=== PATIENT | female | born 2000 | race Caucasian/White ===

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

== ENCOUNTER 2022-10-20 13:32 | Outpatient (REF) | payer OTHER, SELFPAY ==
[2022-10-22 23:39] LABS: TS Negative Control Passed; TS Panel A 0; TS Panel B 0; TS Positive Control Passed; TSpotTB Negative (Negative)
== END 2022-10-20 13:33 | disposition home or self-care (01) ==
LOC: HO.LAB 13:32
PROVIDERS: PCP Student in an Organized Health Care Education/Training Program; Visit Provider Student in an Organized Health Care Education/Training Program
DX: Z11.1 Encounter for screening for respiratory tuberculosis (principal)
CPT/HCPCS: 36415; 86481

== ENCOUNTER 2022-11-08 10:27 | Outpatient (REF) | payer OTHER, SELFPAY ==
[2022-11-08 12:26] LABS: HBsAGNum1 0.32 S/CO (0.00-0.99); Hepatitis B Surface Antigen Negative (Negative)
== END 2022-11-08 10:28 | disposition home or self-care (01) ==
LOC: HO.LAB 10:27
PROVIDERS: PCP Student in an Organized Health Care Education/Training Program; Visit Provider Student in an Organized Health Care Education/Training Program
DX: Z01.84 Encounter for antibody response examination (principal)
CPT/HCPCS: 36415; 87340

== ENCOUNTER → 2023-01-05 11:01 | Outpatient (BNVA) | payer SELFPAY | PROVIDERS: PCP Student in an Organized Health Care Education/Training Program | DX: Z04.9 Encounter for examination and observation for unspecified reason (principal) ==

== ENCOUNTER 2023-07-18 19:56 | Emergency (ER) | payer OTHER, SELFPAY ==
[2023-07-18 20:11] VITALS: BP 117/83; PULSE 77; RESP 18; TEMP 36.4; O2SAT 98; BMI 24.2
--- NOTE | 2023-07-18 20:20 | ED.HEATRA ---
HPI - Head Injury General Chief complaint: Head Injury Stated complaint: possible concussion Time Seen by Provider: 07/18/23 20:19 History of Present Illness HPI Narrative: Patient complains of head injury sustained yesterday afternoon when she tripped in parking lot and hit her head on a pole, she felt dizzy she got a headache, and she vomited once when she got home there was no loss of consciousness, she does remember running into the pole, no retrograde amnesia, no confusion no loss of balance no vision change, she does feel mildly nauseous but she is tolerating p.o. and has not vomited since the 1 time She has no neck pain, no facial pain, no extremity injuries Related Data Home Medications Medication Instructions Recorded Confirmed albuterol sulfate 90 mcg/actuation 2 puff PO Q4H PRN wheezing 07/27/21 07/27/21 aerosol inhaler norethindrone (contraceptive) 0.35 1 tab PO DAILY 07/27/21 07/27/21 mg tablet sertraline 100 mg tablet 1.5 tab PO DAILY 07/27/21 07/27/21 topiramate 50 mg tablet 1 tab PO BID 07/27/21 07/27/21 Allergies Allergy/AdvReac Type Severity Reaction Status Date / Time No Known Allergies Allergy Verified 07/18/23 20:11 [facility] Past Medical History Source: nursing notes reviewed Family History Family History (Updated 07/27/21 @ 11:11 by Karley Melendrez CMA) Mother Breast cancer Paternal Grandmother Diabetes Maternal Grandfather Diabetes Maternal Grandfather Stomach cancer Social History Social History (Updated 07/27/21 @ 11:12 by Karley Melendrez CMA) Household Members: Family Housing: House Are you a primary district manager primary care sales to a significant other at home: No Do you presently have visiting nurse or other home services: No Patient Tobacco Use Status: Never used Tobacco Advance Directives: No Advance Directives Information Provided: No service: No Current occupational status: student Physical Exam Vital Signs: Vital Signs: Last Vital Signs Temp 97.5 F 07/18/23 20:11 Pulse 77 07/18/23 20:11 Resp 18 07/18/23 20:11 BP 117/83 07/18/23 20:11 Pulse Ox 98 07/18/23 20:11 O2 Del Method Room Air 07/18/23 20:11 BMI result Body Mass Index 24.2 General appearance is no acute distress comfortable calm cooperative A&O x3 The head exam there is no hematoma or defect in the scalp or skull No raccoon eyes no vanessa sign Ear exam no hemotympanum Eye exam pupils equal round reactive to light extraocular motions are intact Facial exam there is no tenderness of the bones of the face no swelling Neck exam, full range of motion without discomfort, there is no posterior neck tenderness no midline tenderness Respiratory no distress Extremities full range motion x4 without tenderness swelling or deformity Neuro gait and balance are normal, cranial nerves 2-12 intact as tested, interaction comprehension and expression are normal, cerebellar exam [id number] normal, motor is 5/5 x4, sensation intact and symmetric Course Course Course Narrative: [place] head CT score is 0, patient is very well-appearing no neuro deficit gait and balance interaction are normal she is very comfortable appearing Her continuing mild headache and nausea without vomiting are likely concussion symptoms Discussion with patient she agreed at this point we would hold off on CT and she is discharged with diagnosis of likely concussion Discharge Plan Discharge Clinical Impression: Concussion Additional Instructions: I do not think you sustained any dangerous injury to her head, [place] head CT score was 0 and you are very well-appearing with a normal neurologic exam If symptoms worsen in any way you can come back any time return any time any worse condition or any concerns Follow with primary doctor if minor symptoms persist Prescriptions: No Action sertraline 100 mg tablet 1.5 tab PO DAILY albuterol sulfate 90 mcg/actuation HFA aerosol inhaler 2 puff PO Q4H PRN (Reason: wheezing) norethindrone (contraceptive) 0.35 mg tablet 1 tab PO DAILY topiramate 50 mg tablet 1 tab PO BID Stand Alone Forms: Work/School Release
== END 2023-07-18 20:46 | disposition home or self-care (01) ==
PROVIDERS: Emergency Provider Emergency Medicine; PCP Student in an Organized Health Care Education/Training Program
DX: S06.0X0A Concussion without loss of consciousness, initial encounter (principal); W01.198A Fall on same level from slipping, tripping and stumbling with subsequent striking against other object, initial encounter; Y93.01 Activity, walking, marching and hiking; Y92.481 Parking lot as the place of occurrence of the external cause; Y99.9 Unspecified external cause status
CPT/HCPCS: 99282

== ENCOUNTER 2023-11-21 09:45 | Outpatient (AMB) | payer OTHER, SELFPAY ==
[2023-11-21 09:58] VITALS: BP 102/68; PULSE 75; TEMP 37.1; O2SAT 98
--- NOTE | 2023-11-21 09:58 | AM.OFFWIN_ITS ---
Intake Vital Signs 11/21/23 09:58 Weight 163 lb 6 oz BP 102/68 Blood Pressure Location Lt brachial Position Sitting Pulse 75 Pulse Source Pulse Oximeter Temp 98.8 F Temp Source Oral Pulse Oximetry (%) 98 Oxygen Delivery Method Room Air Intake Visit Reasons: Sinus infection Intake Note: patient here c/o sinus and right ear infection. Patient Tobacco Use Status: Never used Tobacco Station Supervisor Required: No Accompanied by: Mother Is last menstrual period known: Yes Last menstrual period: 11/07/23 Patient : No Allergies No Known Allergies Allergy (Verified 11/21/23 10:04) Medication List - Last Reconciled 11/21/23 by Shirley Porter PA-C albuterol sulfate 90 mcg/actuation 2 puffs PO Q4H PRN norethindrone (contraceptive) 1 tab PO DAILY sertraline 1.5 tabs PO DAILY topiramate 1 tab PO BID Do you need a note to return to daycare/school/sports/work: No HPI Sinus infection HPI Details Patient is a 23-year-old female who presents today with complaints of sinus pain and pressure and right ear pain that started last week. She states that as the week has progressed that has worsened. She went to her primary care doctor yesterday and had a negative strep, COVID and flu test. She states that they did not look in her ear and it started to become painful 2 days ago but today it is excruciating. There is more pain on the right and then the left 1 intermittently hurts. She says that her right sinus is also very tender. She had fevers and chills when this started but nothing since the weekend. No nausea, vomiting or diarrhea. No urinary symptoms. Started Sunday. PFSH Family History (Updated 07/27/21 @ 11:11 by Karley Melendrez CMA) Mother Breast cancer Paternal Grandmother Diabetes Maternal Grandfather Diabetes Maternal Grandfather Stomach cancer Social History (Updated 07/27/21 @ 11:12 by Karley Melendrez CMA) Household Members: Family Housing: House Are you a primary health careers instructor to a significant other at home: No Do you presently have visiting nurse or other home services: No Patient Tobacco Use Status: Never used Tobacco service: No Current occupational status: student Female Reproductive History Menstrual Date of last menstrual period: 11/07/23 Physical Exam Vital Signs: Last Vital Signs Temp 98.8 F 11/21/23 09:58 Pulse 75 11/21/23 09:58 BP 102/68 11/21/23 09:58 Pulse Ox 98 11/21/23 09:58 Oxygen Delivery Method Room Air 11/21/23 09:58 Const Orientation/consciousness: patient oriented x3 HEENT Other: Nasal mucosa erythematous and edematous. Purulent drainage noted. Right maxillary sinus tenderness present. The TM on the right is erythematous and bulging. TM on left is noted to have a small air-fluid level and slightly dull. Ears: hearing grossly normal bilaterally Neck Thyroid: Thyroid normal Lymphatic: lymphadenopathy (Anterior cervical lymphadenopathy noted) Resp Auscultation: clear to auscultation bilaterally Cardio Rate: regular rate Rhythm: regular rhythm Heart sounds: S1 normal heart sound present and S2 normal heart sound present GI Inspection: Yes normal to inspection Palpation (GI): Soft to palpation and Other GI palpation findings present (nontender, no cva tenderness) Auscultation: normoactive bowel sounds Skin General skin exam: no rashes or lesions noted Neuro General: patient oriented x3, gait normal and no focal motor deficits Assessment & Plan Assessment & Plan (1) Right otitis media: Code(s): H66.91 - Otitis media, unspecified, right ear Plan: We will start patient on Augmentin and Flonase. Discussed risks and benefits and adverse effects of this medications such as GI upset. Advised to take a probiotic while she takes an antibiotic. I have also encouraged her to try Sudafed. Follow up if no improvement or if anything worsens or changes. Patient understands and agrees with the plan. Medications: New amoxicillin-pot clavulanate 875-125 mg 1 tab PO Q12H 20 tabs 0RF fluticasone propionate 50 mcg/actuation (Flonase Allergy Relief) administer into each nostril 2 sprays intranasal DAILY 16 grams 0RF Coding Level of Care Code Est Pt Level 3 (87834) Diagnoses Right otitis media H66.91
== END 2023-11-21 10:28 | disposition home or self-care (01) ==
PROVIDERS: PCP Student in an Organized Health Care Education/Training Program; Visit Provider Physician Assistant
DX: H66.91 Otitis media, unspecified, right ear (principal)
CPT/HCPCS: 99213

== ENCOUNTER 2023-11-22 10:38 | Outpatient (AMB) | payer OTHER, SELFPAY ==
[2023-11-22 10:50] VITALS: BP 112/70; PULSE 111; TEMP 36.6; O2SAT 97; BMI 25.8
--- NOTE | 2023-11-22 10:50 | MHC.OFFWIV ---
Intake Vital Signs 11/22/23 10:50 Height 5 ft 6 in Weight 160 lb BMI 25.8 BP 112/70 Blood Pressure Location Lt brachial Position Sitting Pulse 111 H Pulse Source Pulse Oximeter Temp 97.9 F Temp Source Temporal Artery Scan Pulse Oximetry (%) 97 Oxygen Delivery Method Room Air Intake Visit Reasons: EP severe RT ear pain Intake Note: pt is here today for severe rt ear pain started yesterday Patient Tobacco Use Status: Never used Tobacco Allergies No Known Allergies Allergy (Verified 11/22/23 10:53) Do you need a note to return to daycare/school/sports/work: Yes HPI HPI Comments History of Present Illness Details Patient is a 23-year-old female who was complaining of right ear pain. She said she was diagnosed 2 days ago with an ear infection on the right side but feels like the pain is getting worse and her hearing is still reduced. She has taken 4 doses of the amoxicillin. She is concerned because she has to fly to [place] in 2 days and is worried about her eardrum rupturing and more pain. She is also taking a decongestant. She does not take a daily allergy pill. She denies any fever [facility] Family History (Updated 07/27/21 @ 11:11 by Karley Melendrez CMA) Mother Breast cancer Paternal Grandmother Diabetes Maternal Grandfather Diabetes Maternal Grandfather Stomach cancer Social History (Updated 07/27/21 @ 11:12 by Karley Melendrez CMA) Household Members: Family Housing: House Are you a primary managed care nurse to a significant other at home: No Do you presently have visiting nurse or other home services: No Patient Tobacco Use Status: Never used Tobacco service: No Current occupational status: student Review of Systems Const All systems reviewed & are unremarkable except as noted in HPI and below Physical Exam Vital Signs: Last Vital Signs Temp 97.9 F 11/22/23 10:50 Pulse 111 H 11/22/23 10:50 BP 112/70 11/22/23 10:50 Pulse Ox 97 11/22/23 10:50 Oxygen Delivery Method Room Air 11/22/23 10:50 BMI result Body Mass Index 25.8 Const General: cooperative, healthy appearing, comfortable and no acute distress Orientation/consciousness: patient oriented x3 Limitations: no limitations HEENT Head: Yes normal to inspection Ears: external ears normal, TM normal on the left and TM abnormal dull, erythematous and with loss of landmarks General nose exam: Normal external nose present, Normal nares present and No nasal discharge present Face and sinus: Yes normal facial exam Mouth: Normal oral and palatal mucosa present and moist mucous membranes Eyes General: appearance normal, both eyes and all related structures Neck Neck: Yes normal visual inspection Resp Effort & Inspection: normal respiratory effort, able to speak in complete sentences, Actively coughing, no respiratory distress, not tachypneic, no tripod positioning and no use of accessory muscles Skin General skin exam: no rashes or lesions noted Neuro General: patient oriented x3 Extrem General: Yes normal to inspection and Yes no clubbing, cyanosis or edema Assessment & Plan Assessment & Plan (1) Right otitis media: Code(s): H66.91 - Otitis media, unspecified, right ear Qualifiers: Otitis media type: suppurative Chronicity: acute Recurrence: non-recurrent Spontaneous tympanic membrane rupture: without spontaneous rupture Qualified Code(s): H66.001 - Acute suppurative otitis media without spontaneous rupture of ear drum, right ear Plan: Agree to upgrade azithromycin to Augmentin and gave instructions on how to finish out the course with Augmentin, recommended adding daily allergy pill to help with the drying up. Plan Next see above Medications: New amoxicillin-pot clavulanate 875-125 mg 1 tab PO Q12H 10 tabs 0RF Coding Level of Care Code Est Pt Level 3 (47047) Diagnoses Non-recurrent acute suppurative otitis media of right ear without spontaneous rupture of tympanic membrane H66.001 Otitis media type: suppurative Chronicity: acute Recurrence: non-recurrent Spontaneous tympanic membrane rupture: without spontaneous rupture
== END 2023-11-22 12:02 | disposition home or self-care (01) ==
PROVIDERS: PCP Student in an Organized Health Care Education/Training Program; Visit Provider Physician Assistant
DX: H66.001 Acute suppurative otitis media without spontaneous rupture of ear drum, right ear (principal)
CPT/HCPCS: 99213

== ENCOUNTER 2024-02-12 15:26 | Outpatient (REF) | payer OTHER, SELFPAY ==
[2024-02-15 09:12] LABS: TS Negative Control Passed; TS Panel A 1; TS Panel B 0; TS Positive Control Passed; TSpotTB Negative (Negative)
== END 2024-02-12 15:27 | disposition home or self-care (01) ==
LOC: HO.LAB 15:26
PROVIDERS: PCP Student in an Organized Health Care Education/Training Program; Visit Provider Student in an Organized Health Care Education/Training Program
DX: Z11.1 Encounter for screening for respiratory tuberculosis (principal)
CPT/HCPCS: 36415; 86481

== ENCOUNTER 2024-02-25 17:39 | Emergency (ER) | payer OTHER, SELFPAY ==
--- NOTE | ~2024-02-25 | XR_ITS ---
EXAMINATION: XR CHEST CLINICAL INFORMATION: Dyspnea. COMPARISON: None available. TECHNIQUE: Frontal view of the chest was obtained. 1836 hours FINDINGS: No significant abnormality is noted involving the heart, lungs, mediastinum, bony thorax or soft tissues. XR/XR chest 1V IMPRESSION: Unremarkable examination. Electronically signed by: James Delarosa MD 02/25/2024 07:33 PM EDT RP
--- NOTE | ~2024-02-25 | CT_ITS ---
EXAMINATION: CT HEAD WITHOUT IV CONTRAST CLINICAL INFORMATION: headache, severe COMPARISON: CT head without contrast 03/27/2021 TECHNIQUE: Contiguous axial imaging was performed from the skull base to vertex without intravenous contrast. Sagittal and coronal reformatted images were obtained. This CT examination was performed using dose optimization techniques as appropriate, variously including the following: * Automated exposure control * Adjustment of mA and/or kV according to patient size (this includes techniques or standardized protocols for targeted exams where dose is matched to indication/reason for exam; i.e. extremities or head) Use of iterative reconstruction technique DLP: 580 mGy-cm FINDINGS: No acute osseous or soft tissue abnormality. The mastoid air cells and visualized portions of the paranasal sinuses are well aerated. There is no evidence of acute intracranial hemorrhage or territorial infarction. No abnormal mass effect or midline shift is seen. Smiley to white matter differentiation is well preserved. No extra-axial fluid collections are identified. No hydrocephalus. No significant volume loss. There is no abnormal attenuation within the brain parenchyma. Stable prominence of the pituitary with superior convex margin, within normal physiologic limits for age. Stable [address]/CT head/brain wo IV con IMPRESSION: No acute intracranial abnormality including hemorrhage, mass effect, hydrocephalus, or acute territorial edematous infarction. Electronically signed by: Jaime Morrow MD 02/25/2024 08:51 PM EDT
[2024-02-25 17:52] VITALS: BP 134/93; BP 138/78; PULSE 80; PULSE 89; RESP 16; TEMP 36.8; O2SAT 100; O2SAT 99; BMI 28.5
--- NOTE | 2024-02-25 17:54 | ECG_ITS ---
Test Reason : WEAKNESS Blood Pressure : / mmHG Vent. Rate : 079 BPM Atrial Rate : 079 BPM P-R Int : 132 ms QRS Dur : 088 ms QT Int : 400 ms P-R-T Axes : 031 082 040 degrees QTc Int : 458 ms Normal sinus rhythm Normal ECG When compared with ECG of 27-MAR-2021 11:50, Heart rate has increased Referred By: Rita Mobley Electronically Signed By:SIRIA ANDREWS
--- NOTE | 2024-02-25 17:56 | ED.AMS ---
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 Family was home and the patient was shaking her jaw was chattering but no LOC reported. She did go stiff but no LOC reported. She is under a lot of stress which can be a triggering event for her. This event has lasted about 30 minutes which is longer for her. On arrival they are all very anxious and then the patient woke up and started to gasp and the family started to yell she couldn't breathe - her lungs were clear with sats of 99% and then the patient started to sob. Patient went to the mall with her sister prior the event. Parents were home and deny any head trauma MD complaint: other (weakness, chattering teeth, no return to her baseline. ) Onset (ago): minute(s) (30) Timing confirmed by: family member Severity: severe Consistency of symptoms: waxing and waning Context: history of similar presentation (milder) and seizure disorder Associated symptoms: other (jaw chattering, weakness) Related Data Home Medications ?Medication ?Instructions ?Recorded ?Confirmed albuterol sulfate 90 mcg/actuation 2 puff PO Q4H PRN wheezing 07/27/21 11/21/23 aerosol inhaler norethindrone (contraceptive) 0.35 1 tab PO DAILY 07/27/21 11/21/23 mg tablet sertraline 100 mg tablet 1.5 tab PO DAILY 07/27/21 11/21/23 topiramate 50 mg tablet 1 tab PO BID 07/27/21 11/21/23 Previous Rx's ?Medication ?Instructions ?Recorded amoxicillin 875 mg-potassium 1 tab PO Q12H #20 tabs 11/21/23 clavulanate 125 mg tablet fluticasone propionate 50 2 spray intranasal DAILY #16 grams 11/21/23 mcg/actuation nasal spray,suspension (Flonase Allergy Relief) amoxicillin 875 mg-potassium 1 tab PO Q12H #10 tabs 11/22/23 clavulanate 125 mg tablet Allergies Allergy/AdvReac Type Severity Reaction Status Date / Time No Known Allergies Allergy Verified 02/25/24 17:54 Review of Systems Review of Systems: ROS unable to be obtained due to patient not speaking or interacting [facility] Past Medical History Attestation statement: The following information was validated with the patient. Source: old records reviewed Medical History (Updated 02/25/24 @ 21:15 by Rita Mobley DO) Seizure Anxiety Family History Family History (Updated 07/27/21 @ 11:11 by Karley Melendrez CMA) Mother Breast cancer Paternal Grandmother Diabetes Maternal Grandfather Diabetes Maternal Grandfather Stomach cancer Social History Social History Household Members: Family Housing: House Are you a primary career law clerk to a significant other at home: No Do you presently have visiting nurse or other home services: No Patient Tobacco Use Status: Never used Tobacco Smoked in Last 30 Days: No Use of substances other than those prescribed or required for medical reasons: No Advance Directives: No Advance Directives Information Provided: No Do you have a plan to hurt others: No Plan Patient : No service: No Current occupational status: student Physical Exam ED Vital Signs: Vital Signs - 24 hr 02/25/24 17:52 02/25/24 18:11 Temperature 98.3 F 98.5 F Pulse Rate 80 72 Respiratory Rate 16 20 Blood Pressure 134/93 H 139/93 H Pulse Oximetry 100 100 Oxygen Delivery Method Room Air Room Air BMI result Body Mass Index 28.5 Appearance: tears down face, eyes flutter but she has normal corneal reflexes and blinks her eyes to snapping fingers, sobbing at times. Moderate acute distress. Eyes: Pupils equal, round and reactive to light. ENT: Pharynx teeth are chattering, jaw is not rigid Neck: Normal inspection. Neck supple. CVS: tachycardic heart rate and rhythm. Pulses normal. Respiratory: No respiratory distress. Breath sounds normal. Abdomen: Soft and nontender. Skin: Skin warm and dry. Normal skin color. Normal skin turgor. Extremities: No lower extremity edema. No calf ttp Neuro: not able to participate but on exam no clonus no hyperreflexia, babinski normal, responds to painful stimuli, no seizure activity on arrival Medications Administered Discontinued Medications Generic Name Dose Route Start Last Admin Trade Name Jaja PRN Reason Stop Dose Admin Acetaminophen 650 mg 02/25/24 19:22 02/25/24 20:57 Acetaminophen 325 Mg Tablet PO 02/25/24 19:23 650 mg ONCE ONE Administration Lactated Ringer's 1,000 mls @ 999 mls/hr 02/25/24 17:54 02/25/24 20:52 Lr IV 02/25/24 18:54 Infused .Q1H1M ONE Infusion Lorazepam 1 mg 02/25/24 17:54 02/25/24 18:04 Lorazepam 2 Mg/Ml Vial IVPUSH 02/25/24 17:55 1 mg STAT STA Administration Medical Decision Making Medical Decision Making [facility] Narrative: 23 yo female with PMH of seizures on trileptal, anxiety on sertraline who has had EEG in the past and holter here with teeth chattering, crying, anxiety and then states she cannot breathe has hx of these episodes but this is lasting longer than usual. At this time will obtain labs, EKG, CXR, IV ativan and fluids. On arrival no seizure activity noted. No head trauma reported per family. No recent infections had normal day and went to mall with sister per parents. Differential Diagnosis Differential Diagnoses: The differential diagnosis associated with the presentation includes anxiety, lyte abnormality, movement disorder Admission/Observation Consideration of admission/observation: Escalation of care including admission/observation considered labs reassuring CT head and Chest xray negative EKG troponin and ddimer negative back to baseline up and walking to and from the bathroom Lab Data [facility] Lab Attestation statement: I reviewed the patient's lab results. 02/25/24 18:10 02/25/24 18:10 Labs: Lab Results 02/25/24 02/25/24 Range/Units 18:10 18:52 WBC 10.1 (4.8-10.8) X10*3/uL RBC 4.40 (4.20-5.50) X10*6/uL Hgb 13.4 (12.0-16.0) g/dl Hct 38.3 (37.0-47.0) % MCV 87.0 (80.0-98.0) fL MCH 30.5 (27.0-33.0) pg MCHC 35.0 (31.0-35.0) g/dl RDW 12.0 (11.0-16.0) % Plt Count 275 (160-400) X10*3/uL MPV 10.3 (9.4-12.3) fL Immature Gran % (Auto) 0.3 (0.0-0.4) % Neut % (Auto) 60.0 (45-73) % Lymph % (Auto) 29.1 (20-40) % Sutton % (Auto) 5.6 (2-11) % Eos % (Auto) 4.4 H (0-4) % Baso % (Auto) 0.6 (0-2) % Lymph # (Auto) 2.9 (1.2-4.9) X10*3/uL Sutton # (Auto) 0.6 (0.1-1.2) X10*3/uL Eos # (Auto) 0.4 (0.0-0.4) X10*3/uL Baso # (Auto) 0.1 (0.0-0.2) X10*3/uL Abs Immat Gran (auto) 0.03 (0.00-0.03) X10*3/uL Absolute Neuts (auto) 6.1 (2.0-8.3) x10*3/uL Absolute Nucleated RBC 0.000 (0.0-0.012) X10*3/uL Nucleated RBC % (auto) 0.0 (0.0-0.2) /100WBC D-Dimer High Sensitivty < 150 NG/ML Sodium 139 (135-145) mmol/L Potassium 3.5 (3.3-5.1) mmol/L Chloride 105 (96-108) mmol/L Carbon Dioxide 22 (22-29) mmol/L Anion Gap 16 (12-20) BUN 12 (9-16) mg/dL Creatinine 0.85 (0.5-1.4) mg/dL Estim Creat Clear Calc 111.7 Estimated GFR > 60 Random Glucose 96 (60-115) mg/dL Calcium 9.9 (8.4-10.2) mg/dL Magnesium 1.8 (1.6-2.6) mg/dL Total Bilirubin 0.4 (0.0-1.0) mg/dL Direct Bilirubin 0.2 (0.0-0.5) mg/dL AST 12 (5-31) U/L ALT 10 (0-31) U/L Alkaline Phosphatase 87 (39-117) U/L Troponin I High Sens < 2.7 (<3.5-17.0) ng/L B-Natriuretic Peptide < 10 (<100) pg/mL Total Protein 7.3 (6.5-8.0) g/dL Albumin 4.6 (3.5-5.0) g/dL Lipase 20 (8-78) U/L TSH 1.04 (0.32-4.0) uIU/mL Beta HCG, Quant < 2 mIU/mL Independent Interpretation I performed an independent interpretation of an: EKG, Plain X-Ray (normal ) and CT Scan (normal ) Interpretation: Rate: 79 Rhythm: NSR Yarnell: normal Normal P waves. Normal MARC. Normal QRS complex. ST T wave : normal no SATHISH qTC: 458 prior studies: no acute ischemia The study has been interpreted contemporaneously by me. . Radiology Impression Discussion of test interpretation with radiology: I have reviewed the radiologist's reading. Independent Historian Clinical information obtained from an independent historian. History obtained from or confirmed by: Parent and EMS External Record Review External record reviewed: Office record Discharge Plan Discharge Clinical Impression: Atypical chest pain, Abnormal involuntary movements, Migraine Patient Disposition: Home, Self-Care Instructions: Chest Pain (ED), Migraine Headache (ED) Additional Instructions: work up today included normal labs, electrolytes, thyroid test, tests of the heart - troponin, BNP negative for blood clot EKG was normal, chest xray was normal CT head was normal rest, stay hydrated, stay with responsible adult for the next 24 hours return for any worsening symptoms or concerns. follow up with your doctor Prescriptions: No Action sertraline 100 mg tablet 1.5 tab PO DAILY albuterol sulfate 90 mcg/actuation HFA aerosol inhaler 2 puff PO Q4H PRN (Reason: wheezing) norethindrone (contraceptive) 0.35 mg tablet 1 tab PO DAILY topiramate 50 mg tablet 1 tab PO BID amoxicillin-pot clavulanate 875-125 mg tablet 1 tab PO Q12H Qty: 10 0RF amoxicillin-pot clavulanate 875-125 mg tablet 1 tab PO Q12H Qty: 20 0RF fluticasone propionate [Flonase Allergy Relief] 50 mcg/actuation spray,suspension 2 spray intranasal DAILY Qty: 16 0RF Rx Instructions: administer into each nostril Stand Alone Forms: Work/School Release Print Language: Mohawk
--- NOTE | 2024-02-25 18:00 | PC.NURSE ---
Seizure padding applied to pt.'s bedside.
--- NOTE | 2024-02-25 18:03 | PC.NURSE ---
Pt. on continuous SPO2 monitor at bedside. Pt. jolted forward and was unable to breathe. Visibly gasping but no air moving in or out. This RN and Vipul Mobley, DO to bedside. Pt. suddenly gasped and was able to breathe again.
--- NOTE | 2024-02-25 18:03 | PC.NURSE ---
Pt.'s respirations are intact. All VSS
[2024-02-25] MEDS: LORazepam 2 MG/ML VIAL 1 MG IVPUSH (18:04)
[2024-02-25] MEDS: Lactated Ringers 1,000 ML 999 ML IV (18:04)
--- NOTE | 2024-02-25 18:04 | PC.NURSE ---
Pt. medicated per AUG.
[2024-02-25 18:11] VITALS: BP 139/93; PULSE 72; RESP 20; TEMP 36.9; O2SAT 100
[2024-02-25 18:14] LABS: MANUAL DIFF FLAG NO
[2024-02-25 18:31] LABS: Basophils Absolute Auto 0.1 X10*3/uL (0.0-0.2); Basophils Percent Auto 0.6 % (0-2); Eosinophils Absolute Auto 0.4 X10*3/uL (0.0-0.4); Eosinophils Percent Auto 4.4 % (0-4); Hematocrit 38.3 % (37.0-47.0); Hemoglobin 13.4 g/dl (12.0-16.0); Imm Gran Abs Auto 0.03 X10*3/uL (0.00-0.03); Imm Gran Pct Auto 0.3 % (0.0-0.4); Lymphocytes Absolute Auto 2.9 X10*3/uL (1.2-4.9); Lymphocytes Percent Auto 29.1 % (20-40); Mean Corpuscular Hemoglobin 30.5 pg (27.0-33.0); Mean Platelet Volume 10.3 fL (9.4-12.3); Monocytes Absolute Auto 0.6 X10*3/uL (0.1-1.2); Monocytes Percent Auto 5.6 % (2-11); Neutrophils Absolute Auto 6.1 x10*3/uL (2.0-8.3); Platelet Count 275 X10*3/uL (160-400); White Blood Count 10.1 X10*3/uL (4.8-10.8)
[2024-02-25 18:40] LABS: Alanine Aminotransferase 10 U/L (0-31); Albumin Level 4.6 g/dL (3.5-5.0); Alkaline Phosphatase 87 U/L (39-117); Anion Gap 16 (12-20); Aspartate Amino Transferase 12 U/L (5-31); Bilirubin Direct 0.2 mg/dL (0.0-0.5); Bilirubin Total 0.4 mg/dL (0.0-1.0); Blood Urea Nitrogen 12 mg/dL (9-16); Calcium 9.9 mg/dL (8.4-10.2); Carbon Dioxide 22 mmol/L (22-29); Chloride 105 mmol/L (96-108); Creatinine Clr Calc Pharmacy 111.7; Estimated Glomerular Filt Rate > 60; Glucose Random 96 mg/dL (60-115); Lipase 20 U/L (8-78); Magnesium 1.8 mg/dL (1.6-2.6); Potassium 3.5 mmol/L (3.3-5.1); Sodium 139 mmol/L (135-145); Total Protein 7.3 g/dL (6.5-8.0)
[2024-02-25 18:58] LABS: HCG Quantitative < 2 mIU/mL; TSH reflex Free T4 1.04 uIU/mL (0.32-4.0)
[2024-02-25 19:15] LABS: B Type Natriuretic Peptide < 10 pg/mL (<100)
[2024-02-25 19:17] LABS: Troponin-I High Sensitivity < 2.7 ng/L (<3.5-17.0)
[2024-02-25 19:26] LABS: D Dimer High Sensitivity < 150 NG/ML
[2024-02-25] MEDS: Acetaminophen 325 MG TABLET 650 MG PO (20:57)
[2024-02-25] MEDS: Ketorolac Tromethamine 15 MG/ML VIAL IVPUSH (21:26)
[2024-02-25 21:59] VITALS: BP 121/64; PULSE 72; RESP 16; TEMP 37.2; O2SAT 100
[2024-02-25 22:02] VITALS: BP 121/64; PULSE 72; RESP 16; TEMP 37.2; O2SAT 100
== END 2024-02-25 22:04 | disposition home or self-care (01) ==
PROVIDERS: Emergency Provider Emergency Medicine; PCP Student in an Organized Health Care Education/Training Program
DX: R07.89 Other chest pain (principal); R56.9 Unspecified convulsions; G43.909 Migraine, unspecified, not intractable, without status migrainosus; R53.1 Weakness; R06.00 Dyspnea, unspecified; Z79.899 Other long term (current) drug therapy
CPT/HCPCS: 36415; 70450; 71045; 80048; 80076; 83690; 83735; 83880; 84443; 84484; 84702; 85025; 85379; 93005; 96361; 96374; 96375; 99284; 99285; J1885; J2060; J7120

== ENCOUNTER 2024-06-14 15:09 | Outpatient (REF) | payer OTHER, SELFPAY ==
--- NOTE | ~2024-06-14 | MR_ITS ---
EXAMINATION: MR BRAIN WITHOUT AND WITH CONTRAST CLINICAL INFORMATION: Seizures. COMPARISON: CT brain 02/25/2024 TECHNIQUE: Multiplanar, multisequence MRI of the brain was obtained before and after the intravenous administration of 7.5 mL of gadolinium was. FINDINGS: There is no restricted diffusion seen to suspect acute ischemic changes. No magnetic susceptibility artifact seen either to suspect acute or chronic hemorrhagic products or calcification. No T2 FLAIR foci seen within the brain. The mathews to white matter differentiation is maintained normal. The lateral ventricles are symmetrical in size and configuration without enlargement. There is normal symmetry of temporal lobes with no abnormal signal. The temporal horns are symmetrical as well. The posterior fossa appears unremarkable. Postcontrast no abnormal intraparenchymal or extra-axial enhancement seen. Normal flow-void signal is seen in major cerebral vasculature. Incidental finding of mucoperiosteal thickening left maxillary sinus. There is a small polyp or retention cyst left anterior maxillary sinus. The bone marrow is signal appears normal. MR/MR head/brain wo/w con IMPRESSION: Unremarkable MRI brain without and with contrast. Especially no abnormal intraparenchymal, lower extra-axial enhancement seen. Chronic inflammatory changes left maxillary sinus and small polyp or retention cyst right maxillary sinus. Electronically signed by: Marty Vang MD 06/16/2024 09:30 AM EST
[2024-06-14] MEDS: gadobutroL 7.5 ML VIAL IVPUSH (16:12)
== END 2024-06-14 15:10 | disposition home or self-care (01) ==
LOC: HO.MRI 15:09
PROVIDERS: PCP Student in an Organized Health Care Education/Training Program; Visit Provider Nurse Practitioner Primary Care
DX: E34.8 Other specified endocrine disorders (principal); R56.9 Unspecified convulsions
CPT/HCPCS: 70553; A9585

== ENCOUNTER → 2024-06-14 15:25 | Outpatient (BNV) | payer OTHER, SELFPAY | PROVIDERS: PCP Student in an Organized Health Care Education/Training Program; Visit Provider Radiology Diagnostic Radiology | DX: J34.1 Cyst and mucocele of nose and nasal sinus (principal) | CPT/HCPCS: 70553 ==

== ENCOUNTER 2025-02-27 09:25 | Outpatient (AMB) | payer OTHER, SELFPAY ==
--- NOTE | 2025-02-27 09:33 | MHC.OFFVIS ---
Intake Visit Reasons: 6 Months follow up Accompanied by: Mother Allergies No Known Allergies Allergy (Verified 02/27/25 09:38) Medication List - Last Reconciled 02/27/25 by Lori Mccauley CNP albuterol sulfate 90 mcg/actuation 2 puffs PO Q4H PRN fluticasone propionate 50 mcg/actuation (Flonase Allergy Relief) 2 sprays intranasal DAILY norethindrone (contraceptive) 1 tab PO DAILY oxcarbazepine 300 mg PO BID oxcarbazepine 150 mg PO BID spironolactone 50 mg PO BID sumatriptan succinate take 1 tab at onset of headache; if no relief may repeat 1 tab after at least 2 hrs; max = 4 tabs/24 hr PO HPI Comments Details: 24-year-old woman with migraine and seizure disorder (sharp headache, dizziness, weakness, numbness of arms and body, leading to sitting down and passing out. She was told that her eyes rolled up, fluttered, teeth chattered, jaw clenched, body shivered, for 3 to 10 minutes. No incontinence or tongue bite).? She was doing okay, although she was still having few spells. She was taking oxcarbazepine 450mg twice a day. No medication side effects or missed doses. Spells would generally happen in clusters, occurring for few days in a row, and then she could go a few weeks without any. No specific triggers identified, aside from possibly stress. She had few migraines which sumatriptan usually helped, but she was asking if dose could be increased. Sleep was okay. She has been living in [place] for few months with her boyfriend and was back for few days for wedding. [facility] Medical History (Updated 02/27/25 @ 09:37 by Lori Mccauley CNP) Seizure Anxiety Family History (Updated 07/27/21 @ 11:11 by Karley Melendrez CMA) Mother Breast cancer Paternal Grandmother Diabetes Maternal Grandfather Diabetes Maternal Grandfather Stomach cancer Social History Household Members: Family Housing: House Are you a primary primary care coordinator to a significant other at home: No Do you presently have visiting nurse or other home services: No Patient Tobacco Use Status: Never used Tobacco service: No Current occupational status: student Review of Systems Const Denies chills, Denies daytime sleepiness, Denies difficulty sleeping, Denies fatigue, Denies fever(s), Denies frequent falls, Reports headache(s), Denies increased appetite, Denies poor appetite, Denies snoring, Denies weakness, Denies weight gain and Denies weight loss Eyes Denies loss of vision ENT Denies vertigo, Denies dizziness and Reports headache(s) Card Denies chest pain at rest, Denies chest pain with activity, Denies syncope, Denies leg edema and Denies palpitations Resp Denies snoring GI Denies constipation, Denies heartburn, Denies diarrhea and Denies nausea Denies urinary frequency, Denies urinary incontinence and Denies urinary urgency Musc Denies abnormal gait, Denies numbness and Denies tingling Skin/Breast Denies dry skin and Denies rash Neuro Denies abnormal gait, Denies vertigo, Denies dizziness, Denies syncope, Denies frequent falls, Reports headache(s), Denies lack of coordination, Denies loss of vision, Denies memory loss, Denies numbness, Denies restless legs, Reports seizure-like activity, Denies tingling, Denies paresthesias, Denies tremor(s) and Denies weakness Psych Denies anxiety, Denies depression, Denies auditory hallucinations, Denies memory loss, Denies visual hallucinations and Denies suicidal ideation Endo Denies fatigue and Denies palpitations Physical Exam Const Other: General Appearance:? normal, in no acute distress. Skin:? no rashes, no significant birthmarks. Heart:? S1, S2 normal, no murmurs. Lungs:? clear anteriorly and posteriorly. Extremities:? no edema. Psych:? alert, oriented, cognitive function intact, cooperative with exam. Neuro Other: Mental Status:?Normal attention, orientation, memory and affect.? Cranial Nerves:?Pupils are equal, round and reactive to light. External occular muscles are intact. Visual reyes are full. Face is symmetrical. Facial sensations are normal. Tongue is midline. Palate elevates symmetrically. Shoulder shrugging is normal. Hearing to bedside conversation is normal. Sensory Exam:?....? Coordination:?No ataxia,?no titubation.? Gait Exam: Within normal limits. Cerebellar Signs:?[id number]-[id number] is okay. Extrapyramidal System:?No tremor, rigidity with normal facial expressions.? Pronator Drift:?Not present.? Involuntary Movements:?No tremors seen.? Speech:?Normal.? Results Reviewed Results Reviewed: [address] [address] Magnetic Resonance Report Signed Patient: Alisha Ratliff MR#: [id number] : 2000 Acct:[id number] Age/Sex: 23 / F ADM Date: 06/14/24 Loc: HO.MRI Attending Dr: Jennifer Valdes NP Ordering Physician: Jennifer Valdes NP Date of Service: 06/14/24 Procedure(s): MR head/brain wo/w con Accession Number(s): [id number] cc: Jennifer Valdes NP; Jyoti James MD~ EXAMINATION: MR BRAIN WITHOUT AND WITH CONTRAST CLINICAL INFORMATION: Seizures. COMPARISON: CT brain 02/25/2024 TECHNIQUE: Multiplanar, multisequence MRI of the brain was obtained before and after the intravenous administration of 7.5 mL of gadolinium was. FINDINGS: There is no restricted diffusion seen to suspect acute ischemic changes. No magnetic susceptibility artifact seen either to suspect acute or chronic hemorrhagic products or calcification. No T2 FLAIR foci seen within the brain. The mathews to white matter differentiation is maintained normal. The lateral ventricles are symmetrical in size and configuration without enlargement. There is normal symmetry of temporal lobes with no abnormal signal. The temporal horns are symmetrical as well. The posterior fossa appears unremarkable. Postcontrast no abnormal intraparenchymal or extra-axial enhancement seen. Normal flow-void signal is seen in major cerebral vasculature. Incidental finding of mucoperiosteal thickening left maxillary sinus. There is a small polyp or retention cyst left anterior maxillary sinus. The bone marrow is signal appears normal. MR/MR head/brain wo/w con IMPRESSION: Unremarkable MRI brain without and with contrast. Especially no abnormal intraparenchymal, lower extra-axial enhancement seen. Chronic inflammatory changes left maxillary sinus and small polyp or retention cyst right maxillary sinus. Electronically signed by: Marty Vang MD 06/16/2024 09:30 AM [facility] Dictated By: Marty Vang MD Signed By: <Electronically signed by Marty Vang MD in OV> 06/16/24 0930 -- Amb EEG 48 hr at [facility] in May 2022: b/l sharp theta discharges CT brain WO at [facility] in Mar 2021: WNL EEG at off in Apr 2022: abn, ?gen sharps. Assessment & Plan Assessment & Plan (1) Seizure disorder: Code(s): G40.909 - Epilepsy, unspecified, not intractable, without status epilepticus Category: Medical Plan: Increase oxcarbazepine 300mg 2 tablets twice a day. (2) Migraine without aura: Code(s): G43.009 - Migraine without aura, not intractable, without status migrainosus Category: Medical Qualifiers: Intractability: not intractable Status migrainosus presence: without status migrainosus Qualified Code(s): G43.009 - Migraine without aura, not intractable, without status migrainosus Plan: Increase sumatriptan 100mg 1 tablet as needed for migraines. Plan Meds tried: topiramate, verapamil Medications: New oxcarbazepine 150 mg PO BID 90 days 180 tabs 1RF sumatriptan succinate take 1 tab at onset of headache; if no relief, may repeat 1 tab after at least 2 hrs; max = 2 tabs/24 hrs PO 30 days 10 tabs 5RF oxcarbazepine 300 mg PO BID 90 days 180 tabs 1RF oxcarbazepine 150 mg PO BID 90 days 180 tabs 1RF sumatriptan succinate take 1 tab at onset of headache; if no relief, may repeat 1 tab after at least 2 hrs; max = 2 tabs/24 hrs PO 10 tabs 5RF 30 days oxcarbazepine 300 mg PO BID 90 days 180 tabs 1RF sumatriptan succinate take 1 tab at onset of headache; if no relief, may repeat 1 tab after at least 2 hrs; max = 2 tabs/24 hrs PO 30 days 10 tabs 5RF oxcarbazepine 300 mg PO BID 90 days 180 tabs 3RF oxcarbazepine 600 mg (2 x 300 mg) PO BID 90 days 360 tabs 3RF oxcarbazepine 600 mg (2 x 300 mg) PO BID 360 tabs 3RF 90 days Coding Level of Care Code Est Pt Level 4 (93785) Diagnoses Seizure disorder G40.909 Migraine without aura and without status migrainosus, not intractable G43.009 Intractability: not intractable Status migrainosus presence: without status migrainosus
--- OUTSIDE RECORDS SUMMARY | 2025-02-27 10:18 | XMS_ITS | Encounter Summary ---
Author Organization [facility] Address [address] [place] [address] Phone Care Team Providers Care Package Checker Name Role Phone Vidya Marin ISSUE CLERK Primary Care Provider [phone] Reason for Visit * Reason Comments Med Refill Encounter Details Date Type Department Care Team ([facility] st Contact Info) Description 09/18/2019 Refill [facility] Pediatrics - [place] [address] [place] [address] Vidya Marin NP [address] [place] [address] Anxiety Social History Tobacco Use Types Packs/Day Years Used Date Smoking Tobacco: Never Smokeless Tobacco: Never Alcohol Use Standard Drinks/Week Comments No 0 (1 standard drink = 0.6 oz pur e alcohol) Can say no Hunger/Food Answer Date Recorded In the last 12 months, did y ou or your family ever eat less than you felt you should because there wasn't enough money for food? No 08/21/2019 Stable Housing Answer Date Recorded Are you worried that in the next 2 months you may not have stable housing? No 08/21/2019 Transportation Concerns Answer Date Rec orded In the last 12 months, have you or your family ever had to go without healthcare because you didn't have a way to get there? No 08/21/2019 Hazards in Home Answer Date Recorded Think about the place you li ve. Do you have problems with any of the following? Pests (mice or roaches), mold, no/not working smoke detectors, water leaks, no window guards. No 2019 Financing Utilities Answer Date Recorde d In the last 12 months, has t he electric, gas, oil, or water company threatened to shut off your services in your home? No 08/21/2019 Safety at Home Answer Date Recorded Are you or your family worried about feeling saf e in your home? No 08/21/2019 Outside Support Answer Date Recorded Do you feel that you need mo re support from other people or programs to help you care for yourself or your family? No 08/21/2019 Understanding Health Concerns Answer Da te Recorded Do you need help understandi ng your or your child's healthcare needs (diagnosis, medications, plan, etc.)? No 08/21/2019 Financing Health Concerns Answer Date R ecorded In the last 12 months, was t here a time when your child needed to see a doctor or get medications or supplies but could not because of cost? No 08/21/2019 Missing School or Work Answer Date Ayo rded Did you or your child miss s chool or work because of a health problem that could have been avoided? No 08/21/2019 Comments No Sex and Gender Information Value Date Recorded Sex Assigned at Not on file Legal Sex Female 11:14 PM EST Gender Identity Female 03/14/2020 6:23 PM EDT Sexual Orientation Not on file documented as of this encounter Plan of Treatment Not on file documented as of this encounter Visit Diagnoses Diagnosis Anxiety Anxiety state, unspecified documented in this encounter Care Teams Package Checker Relationship Specialty Start Date End Date Vidya Marin NP [address] [place] [id number] PCP - General 07/25/16 01/15/24 documented as of this encounter
--- OUTSIDE RECORDS SUMMARY | 2025-02-27 10:18 | XMS_ITS | Encounter Summary ---
Author Organization [facility] Address [address] [place] [address] [address] [place] [address] Phone Care Team Providers Care Beef Ribber Name Role Phone Vidya Marin NP Primary Care Provide r Jyoti James MD Primary Care Provider [phone] Encounter Details Date Type Department Care Team (Late st Contact Info) Description 06/27/2017 Ancillary Orders Virtual Department [address] [place] [address] Robert Carver MD [address] [facility] [address] [place] [address] [email or web address] Abdominal pain, generalized Social History Tobacco Use Types Packs/Day Years Used Date Smoking Tobacco: Never Assessed Comments Unknown Sex and Gender Information Value Date Recorded Sex Assigned at Female 06/02/2024 11:55 AM EST Legal Sex Female 8:44 PM EDT Gender Identity Female 06/02/2024 11:55 AM EST Sexual Orientation Don't know 06/02/2024 12 :08 PM EST documented as of this encounter Plan of Treatment Not on file documented as of this encounter Results * FL UGI SERIES SINGLE CONTRAST (07/25/2017 9:06 AM EST) Anatomical Region Laterality Modality Abdomen Radiographic Tawny ging 07/25/2017 9:17 AM EST Addenda Addendum by Teddy Malcolm MD on 08/20/2017 8:17 AM EDT COMPARISON: 06/21/2017. FINDINGS: A preliminary view of the abdomen reveals an unremarkable bowel gas pattern. A standard single contrast study was performed. Following ingestion of the contrast mixture deglutition was assessed fluoroscopically and found to be grossly normal, <<< WITHOUT >>> evidence of hiatal hernia. The stomach and duodenal cap filled moderately well. There was a tiny collection of barium seen in the gastric fundus on multiple images although it could not be clearly profiled as an ulcer. Gastric <<< RUGAL MUCOSAL >>> folds were otherwise unremarkable. Duodenal cap was unremarkable as was the remainder of the visualized proximal small bowel. <<< MINIMAL >>> spontaneous reflux into the distal esophagus was noted during the course of the examination without mucosal ulcerations or strictures apparent. Minimal spontaneous reflux into the distal esophagus was noted during the course of the examination. The visualized proximal small bowel was unremarkable IMPRESSION: Very equivocal tiny gastric fundal ulceration without additional esophageal or gastroduodenal mucosal pathology apparent. Minimal spontaneous gastroesophageal reflux. FLUOROSCOPY TIME: 1 min. 40 sec; 16 IMAGES/FRAMES POS - [id number] Edited by: Blessing Gonzales on 08/12/2017 11:57 AM Impressions 07/25/2017 9:21 AM EST Very equivocal tiny gastric fundal ulceration without additional esophageal or gastroduodenal mucosal pathology apparent. Minimal spontaneous gastroesophageal reflux. FLUOROSCOPY TIME: 1 min. 40 sec; 16 IMAGES/FRAMES POS - [id number] Narrative 07/25/2017 9:21 AM EST COMPARISON: 06/21/2017 FINDINGS: A preliminary view of the abdomen reveals an unremarkable bowel gas pattern. A standard single contrast study was performed. Following ingestion of the contrast mixture deglutition was assessed fluoroscopically and found to be grossly normal, doubt evidence of hiatal hernia. The stomach and duodenal cap filled moderately well. There was a tiny collection of barium seen in the gastric fundus on multiple images although it could not be clearly profiled as an ulcer. Gastric gross folds were otherwise unremarkable. Duodenal cap was unremarkable as was the remainder the visualized proximal small bowel. Spontaneous reflux into the distal esophagus was noted during the course of the examination without mucosal ulcerations or strictures apparent. Minimal spontaneous reflux into the distal esophagus was noted during the course of the examination. The visualized proximal small bowel Procedure Note Teddy Malcolm MD - 07/25/2017 COMPARISON: 06/21/2017 FINDINGS: A preliminary view of the abdomen reveals an unremarkable bowel gaspattern. A standard single contrast study was performed. Followingingestion of the contrast mixture deglutition was assessedfluoroscopically and found to be grossly normal, doubt evidence of hiatalhernia. The stomach and duodenal cap filled moderately well. There was atiny collection of barium seen in the gastric fundus on multiple imagesalthough it could not be clearly profiled as an ulcer. Gastric grossfolds were otherwise unremarkable. Duodenal cap was unremarkable as wasthe remainder the visualized proximal small bowel. Spontaneous refluxinto the distal esophagus was noted during the course of the examinationwithout mucosal ulcerations or strictures apparent. Minimal spontaneousreflux into the distal esophagus was noted during the course of theexamination. The visualized proximal small bowel IMPRESSION: Very equivocal tiny gastric fundal ulceration without additionalesophageal or gastroduodenal mucosal pathology apparent. Minimalspontaneous gastroesophageal reflux. FLUOROSCOPY TIME: 1 min. 40 sec; 16 IMAGES/FRAMES POS - [id number] Robert Carver MD [facility] Edited Result - Final documented in this encounter Visit Diagnoses Diagnosis Abdominal pain, generalized Abdominal pain, generalized documented in this encounter Additional Health Concerns Infection Onset Date Last Indicated Resolved Time CoV-Risk 11/23/2021 11/23/2021 12/04/2021 1:22 AM EDT documented as of this encounter Care Teams Beef Ribber Relationship Specialty Start Date End Date Vidya Marin NP [address] [place] [phone] [email or web address] PCP - General Family Medicine 06/21/17 03/23/21 Jyoti James MD [address] [place] [address], [address] [place] [address] [email or web address] PCP - General Family Medicine 03/24/21 documented as of this encounter Additional Source Comments The information contained in this document represents components of the legal health record. It is not the complete legal health record.[facility]
--- OUTSIDE RECORDS SUMMARY | 2025-02-27 10:18 | XMS_ITS | Encounter Summary ---
Author Organization [facility] Address [address] [place] [address] Phone Care Team Providers Care Software Engineer Backend Name Role Phone Vidya Marin SOIL EXPERT Primary Care Provider [phone] Reason for Visit * Reason Comments Med Refill Encounter Details Date Type Department Care Team ([facility] st Contact Info) Description 12/31/2019 Refill [facility] Pediatrics - [place] [address] [place] [address] Vidya Marin NP [address] [place] [address] Sleep disturbance Social History Tobacco Use Types Packs/Day Years [...] as of this encounter Visit Diagnoses Diagnosis Sleep disturbance Unspecified sleep disturbance documented in this encounter Care Teams Software Engineer Backend Relationship Specialty Start Date End Date Vidya Marin NP [address] [place] [address] PCP - General 07/25/16 01/15/24 documented as of this encounter
--- OUTSIDE RECORDS SUMMARY | 2025-02-27 10:18 | XMS_ITS | Encounter Summary ---
Author Organization [facility] Address [address] [place] [address] [place] [phone] Phone Care Team Providers Care Global Sales Manager Name Role Phone Vidya Marin NP Primary Care Provide r Jyoti James MD Primary Care Provider [phone] Encounter Details Date Type Department Care Team (Late st Contact Info) Description 10/13/2020 Procedure [facility], [address] [address] Social History Tobacco Use Types Packs/Day Years Used Date Smoking Tobacco: Never Smokeless Tobacco: Never Alcohol Use Standard Drinks/Week Comments No 0 (1 standard drink = 0.6 oz pur e alcohol) Comments No Sex and Gender Information Value Date Recorded Sex Assigned at Female 06/02/2024 11:55 AM EST Legal Sex Female 8:44 PM EDT Gender Identity Female 06/02/2024 11:55 AM EST Sexual Orientation Don't know 06/02/2024 12 :08 PM EST documented as of this encounter Plan of Treatment Not on file documented as of this encounter Visit Diagnoses Not on filedocumented in this encounter Additional Health Concerns Infection Onset Date Last Indicated Resolved Time CoV-Risk 11/23/2021 11/23/2021 12/04/2021 1:22 AM EDT documented as of this encounter Care Teams Global Sales Manager Relationship Specialty Start Date End Date Vidya Marin NP [address] [place] [address] [email or web address] PCP - General Family Medicine 06/21/17 03/23/21 Jyoti James MD [address] [place] [address] [address] [place] [address] [email or web address] PCP - General Family Medicine 03/24/21 documented as of this encounter Additional Source Comments The information contained in this document represents components of the legal health record. It is not the complete legal health record.[facility]
--- OUTSIDE RECORDS SUMMARY | 2025-02-27 10:18 | XMS_ITS | Encounter Summary ---
Author Organization [facility] Address Formerly [facility] [address] [place] [address] Phone Care Team Providers Care Lobbyist Name Role Phone Vidya Marin NP Primary Care Provide r Jyoti James MD Primary Care Provider [phone] Encounter Details Date Type Department Care Team (Late st Contact Info) Description 10/18/2018 Ancillary Orders [facility], X-Ray - [facility] [address] [place] [address] Mona Rice, [facility] [address] [facility], [address] [place] [address] [email or web address] Social History Tobacco Use Types Packs/Day Years Used Date Smoking Tobacco: Never Smokeless Tobacco: Never Alcohol Use Standard Drinks/Week Comments No 0 (1 standard drink = 0.6 oz pur e alcohol) Comments Unknown Sex and Gender Information Value Date Recorded Sex Assigned at Female 06/02/2024 11:55 AM EST Legal Sex Female 8:44 PM EDT Gender Identity Female 06/02/2024 11:55 AM EST Sexual Orientation Don't know 06/02/2024 12 :08 PM EST documented as of this encounter Plan of Treatment Not on file documented as of this encounter Results * XR FOOT 3 OR MORE VIEWS (LEFT) (10/18/2018 8:26 PM EDT) Anatomical Region Laterality Modality Foot Left Radiographic Tawny ging 10/18/2018 8:34 PM EDT Impressions 10/18/2018 8:41 PM EDT Very equivocal evidence of a medial sesamoid fracture. Correlation with exact site of pain needed. No other bony pathology is apparent. POS [id number] Narrative 10/18/2018 8:41 PM EDT 3 views Compare 05/02/2010. No definite fracture is identified but since the last exam the growth plates are closed and the sesamoids have appeared. The medial sesamoid is bipartite but with relatively sharp margins possibly indicating an acute sesamoid fracture. The lateral sesamoid is bipartite but smooth and rounded; that appearance is clearly developmental. No other bony injuries are apparent. No arthritic changes or signs of tumor or infection. No opaque foreign bodies. Procedure Note Teofilo Flanagan MD - 10/18/2018 3 views Compare 05/02/2010. No definite fracture is identified but since the last exam the growthplates are closed and the sesamoids have appeared. The medial sesamoid isbipartite but with relatively sharp margins possibly indicating an acutesesamoid fracture. The lateral sesamoid is bipartite but smooth and rounded; that appearanceis clearly developmental. No other bony injuries are apparent. No arthritic changes or signs of tumor or infection. No opaque foreign bodies. IMPRESSION: Very equivocal evidence of a medial sesamoid fracture. Correlation withexact site of pain needed. No other bony pathology is apparent. POS [id number] Mona Rice SUBGRADE TESTER IMG XR LOW ER EXTREMITY Final Result documented in this encounter Visit Diagnoses Diagnosis Pain Generalized pain Pain Generalized pain documented in this encounter Additional Health Concerns Infection Onset Date Last Indicated Resolved Time CoV-Risk 11/23/2021 11/23/2021 12/04/2021 1:22 AM EDT documented as of this encounter Care Teams Lobbyist Relationship Specialty Start Date End Date Vidya Marin NP [address] [place] [phone] [email or web address] PCP - General Family Medicine 06/21/17 03/23/21 Jyoti James MD [address] [place] [address] 7 [place] [address] [email or web address] PCP - General Family Medicine 03/24/21 documented as of this encounter Additional Source Comments The information contained in this document represents components of the legal health record. It is not the complete legal health record.[facility]
--- OUTSIDE RECORDS SUMMARY | 2025-02-27 10:18 | XMS_ITS | Encounter Summary ---
Author Organization [facility] Address [address] [place] [address] [place] [address] Phone Care Team Providers Care Unloading Checker Name Role Phone Vidya Marin NP Primary Care Provide r Jyoti James MD Primary Care Provider [phone] Encounter Details Date Type Department Care Team (Late st Contact Info) Description 03/22/2020 Ancillary Orders Virtual Department 30 [place] [address] Sonya Miles MD 9 [place] [address] Injury of toe on left foot, initial encounter Social History Tobacco Use Types Packs/Day Years [...] as of this encounter Results * XR Toes 2 or More (Left) (03/22/2020 3:23 PM EDT) Anatomical Region Laterality Modality Foot Left Computed Radiogr aphy 03/22/2020 3:56 PM EDT Impressions 03/22/2020 3:57 PM EDT No acute bony abnormality. POS - [id number] Narrative 03/22/2020 3:57 PM EDT COMPARISON: 10/18/2018 FINDINGS: Frontal, lateral, and oblique views reveal no acute fracture, subluxation, or other significant interval change in the appearance of the regional skeletal structures. A bipartite versus chronically fractured medial sesamoid underlying the first metatarsal head. Procedure Note Leon Wolf MD - 03/22/2020 COMPARISON: 10/18/2018 FINDINGS: Frontal, lateral, and oblique views reveal no acute fracture, subluxation,or other significant interval change in the appearance of the regionalskeletal structures. A bipartite versus chronically fractured medialsesamoid underlying the first metatarsal head. IMPRESSION: No acute bony abnormality. POS - [id number] Sonya Miles MD IMG XR LOWER EXTREMITY Final Result documented in this encounter Visit Diagnoses Diagnosis Injury of toe on left foot, initial encounter Injury of toe on left foot, initial encounter documented in this encounter Additional Health Concerns Infection Onset Date Last Indicated Resolved Time CoV-Risk 11/23/2021 11/23/2021 12/04/2021 1:22 AM EDT documented as of this encounter Care Teams Unloading Checker Relationship Specialty Start Date End Date Vidya Marin NP [address] [place] [address] [email or web address] PCP - General Family Medicine 06/21/17 03/23/21 Jyoti James MD [address] [place] [address], [address] [place] [address] [email or web address] PCP - General Family Medicine 03/24/21 documented as of this encounter Additional Source Comments The information contained in this document represents components of the legal health record. It is not the complete legal health record.[facility]
--- OUTSIDE RECORDS SUMMARY | 2025-02-27 10:18 | XMS_ITS | Encounter Summary ---
Author Organization [facility] Address [address] [place] [address] [address] [place] [address] Phone Care Team Providers Care Vtc Technician Name Role Phone Vidya Marin NP Primary Care Provide r Jyoti James MD Primary Care Provider [phone] Encounter Details Date Type Department Care Team (Late st Contact Info) Description 07/07/2018 Transcribe Orders [facility] Specimen Processing [address] [place] [address] Mona Rice, [facility] [address] [facility], [address] [place] [address] Sorethroat (Primary Dx) Social History Tobacco Use Types Packs/Day Years [...] documented as of this encounter Results * Streptococcus, Group A Culture (07/07/2018 10:36 AM EST) Specimen Source/ Description THROAT SWAB THROAT [facility] Special Requests None [facility] Culture/Test NEGATIVE FOR GRP A BETA STREPTOCOCCI [facility] Report Status 07/09/2018 FINAL [facility] Other (Throat) 07/07/2018 10 :36 AM EST 07/07/2018 1:43 PM EST us Mona Rice BUTTON MAKER AND INSTALLER MICROBIOLO GY - GENERAL ORDERABLES Final Result [facility] [address] [place] [address] documented in this encounter Visit Diagnoses Diagnosis Sorethroat- Primary Acute pharyngitis documented in this encounter Additional Health Concerns Infection Onset Date Last Indicated Resolved Time CoV-Risk 11/23/2021 11/23/2021 12/04/2021 1:22 AM EDT documented as of this encounter Care Teams Vtc Technician Relationship Specialty Start Date End Date Vidya aMrin NP [address] [place] [address] PCP - General Family Medicine 06/21/17 03/23/21 Jyoti James MD [address] [place] [address], [address] [place] [address] [email or web address] PCP - General Family Medicine 03/24/21 documented as of this encounter Additional Source Comments The information contained in this document represents components of the legal health record. It is not the complete legal health record.[facility]
--- OUTSIDE RECORDS SUMMARY | 2025-02-27 10:18 | XMS_ITS | Encounter Summary ---
Author Organization [facility] Address [address] [place] [address] [place] [address] Phone Care Team Providers Care Special Agent Fbi Name Role Phone Vidya Marin NP Primary Care Provide r Jyoti James MD Primary Care Provider [phone] Encounter Details Date Type Department Care Team (Late st Contact Info) Description 03/22/2020 Ancillary Orders Virtual Department 30 [place] [address] Sonya Miles MD 9 [place] [address] Injury of toe on left foot, initial [...] as of this encounter Visit Diagnoses Diagnosis Injury of toe on left foot, initial encounter documented in this encounter Additional Health Concerns Infection Onset Date Last Indicated Resolved Time CoV-Risk 11/23/2021 11/23/2021 12/04/2021 1:22 AM EDT documented as of this encounter Care Teams Special Agent Fbi Relationship Specialty Start Date End Date Vidya Marin NP [address] [place] [address] [email or web address] PCP - General Family Medicine 06/21/17 03/23/21 Jyoti James MD [address] [place] [address], [facility] 7 [place] [address] [email or web address] PCP - General Family Medicine 03/24/21 documented as of this encounter Additional Source Comments The information contained in this document represents components of the legal health record. It is not the complete legal health record.[facility]
--- OUTSIDE RECORDS SUMMARY | 2025-02-27 10:18 | XMS_ITS | Encounter Summary ---
Author Organization [facility] Address [address] [place], [place] [address] Phone Care Team Providers Care River Expedition Guide Name Role Phone Vidya Marin NP Primary Care Provider [phone] Encounter Details Date Type Department Care Team (Late st Contact Info) Description 01/10/2017 Conversion Encounter [facility] Pediatrics - [address], [address] [place] [address] Vidya Marin NP [address] [place] [address] Social History Tobacco Use Types Packs/Day Years [...] Diagnoses Not on filedocumented in this encounter Care Teams River Expedition Guide Relationship Specialty Start Date End Date Vidya Marin NP [address] [place] [address] PCP - General 07/25/16 01/15/24 documented as of this encounter
--- OUTSIDE RECORDS SUMMARY | 2025-02-27 10:18 | XMS_ITS | Encounter Summary ---
Author Organization [facility] Address [address] [place] [address] Phone Care Team Providers Care Service Agent Name Role Phone Vidya Marin GLASS FRAME FITTER Primary Care Provider [phone] Reason for Visit * Reason Comments Med Refill Encounter Details Date Type Department Care Team ([facility] st Contact Info) Description 11/24/2019 Refill [facility] - [place] [address] [place] [address] Vidya Marin NP [address] [place] [address] Anxiety Social History Tobacco Use Types Packs/Day [...] on file documented as of this encounter Miscellaneous Notes * Telephone Encounter - Vidya Marin NP - 11/24/2019 5:38 AM EDT Rx sent- will call pt for f/u sleep documented in this encounter Plan of Treatment Not on file documented as of this encounter Visit Diagnoses Diagnosis Anxiety Anxiety state, unspecified documented in this encounter Care Teams Service Agent Relationship Specialty Start Date End Date Vidya Marin NP [address] [place] [address] PCP - General 07/25/16 01/15/24 documented as of this encounter
--- OUTSIDE RECORDS SUMMARY | 2025-02-27 10:18 | XMS_ITS | Encounter Summary ---
Author Organization [facility] Address [address] [place] [address] Drive [address] [place] [address] Phone Care Team Providers Care Plant Sprayer Name Role Phone Vidya Marin NP Primary Care Provide r Jyoti James MD Primary Care Provider [phone] Reason for Referral * MRI/CAT Scan - Closed Specialty Diagnoses / Procedures Referred By Dayton braswell Referred To Contact Radiology Diagnoses Intractable migraine with aura without status migrainosus Procedures MRI Brain CHG MRI BRAIN CHG MRI BRAIN COMBO CHG MRI BRAIN CONTRAST Kenia Maldonado MD Phone: tel: fax: [email or web address] Referral ID Status Reason Start Date Expiration Date Visits Re quested Visits Authorized [id number] Closed 10/13/2020 01/11/2021 1 1 Encounter Details Date Type Department Care Team (Latest Contact Info) Description 10/13/2020 Transcribe Orders [facility] Department [address] [place], [place] [id number] Kenia Maldonado MD 193 [facility] 2 [place] [address] [email or web address] Intractable migraine with aura without status migrainosus (Primary Dx) Social History Tobacco Use Types [...] documented as of this encounter Results * MRI BRAIN WITHOUT CONTRAST (10/26/2020 7:26 PM EDT) Anatomical Region Laterality Modality Head Magnetic Resonan ce 10/27/2020 9:37 AM EDT Impressions 10/27/2020 9:40 AM EDT Essentially normal MRI appearance of the brain POS [id number] Narrative 10/27/2020 9:40 AM EDT TECHNIQUE: 1.5 Milly scanner. Nonenhanced exam. No comparison FINDINGS: No signal changes suspicious for ischemia, infarct, hemorrhage, mass, demyelinating disease or an inflammatory process in either hemisphere or the posterior fossa. Slightly prominent pituitary with a convex upper border but not displacing the chiasm considered a normal variant at this age. No pineal region, IAC or intraorbital pathology. Normal ventricular size and configuration. Basilar cisterns widely patent. No signs of elevated intracranial pressure or cerebellar tonsillar ectopia. Normal flow-voids are present in the major vessels of the [place] and dural venous sinuses. No inflammatory changes in the paranasal sinuses or mastoid air cells. Procedure Note Teofilo Flanagan MD - 10/27/2020 TECHNIQUE: 1.5 Milly scanner. Nonenhanced exam. No comparison FINDINGS: No signal changes suspicious for ischemia, infarct, hemorrhage, mass,demyelinating disease or an inflammatory process in either hemisphere orthe posterior fossa. Slightly prominent pituitary with a convex upper border but not displacingthe chiasm considered a normal variant at this age. No pineal region, IAC or intraorbital pathology. Normal ventricular size and configuration. Basilar cisterns widely patent.No signs of elevated intracranial pressure or cerebellar tonsillarectopia. Normal flow-voids are present in the major vessels of the [place] dural venous sinuses. No inflammatory changes in the paranasal sinuses or mastoid air cells. IMPRESSION: Essentially normal MRI appearance of the brain POS [id number] Kenia Maldonado MD IMG MR HEAD/NECK Final Resul t documented in this encounter Visit Diagnoses Diagnosis Intractable migraine with aura without status migrainosus- Primary Intractable migraine with aura without status migrainosus documented in this encounter Additional Health Concerns Infection Onset Date Last Indicated Resolved Time CoV-Risk 11/23/2021 11/23/2021 12/04/2021 1:22 AM EDT documented as of this encounter Care Teams Plant Sprayer Relationship Specialty Start Date End Date Vidya Marin NP [address] [place] [address] [email or web address] PCP - General Family Medicine 06/21/17 03/23/21 Jyoti James MD [address] [place] [address], [facility] 7 [place] [address] [email or web address] PCP - General Family Medicine 03/24/21 documented as of this encounter Additional Source Comments The information contained in this document represents components of the legal health record. It is not the complete legal health record.[facility]
--- OUTSIDE RECORDS SUMMARY | 2025-02-27 10:19 | XMS_ITS | Encounter Summary ---
Author Organization [facility] Address [address] [place] [address] [place] [address] Phone Care Team Providers Care Equine Internship Name Role Phone Vidya Marin NP Primary Care Provide r Jyoti James MD Primary Care Provider [phone] Encounter Details Date Type Department Care Team (Latest Contact Info) Description 06/21/2017 Transcribe Orders [facility] [address] [place] [address] Robert Carver MD [address] [facility] [address] [place] [address] [email or web address] Abdominal pain, generalized (Primary Dx) Social History Tobacco Use Types [...] on file documented as of this encounter Procedures Procedure Name Priority Date/Time Associated Diagnosis Comments COMPREHENSIVE METABOLIC PANEL Routine 06/21/2017 3:38 PM EST Abdominal pain, generalized TISSUE TRANSGLUTAMINASE IGA Routine 06/21/2017 3:38 PM EST Abdominal pain, generalized SEDIMENTATION RATE (ESR) Routine 018 3:38 PM EST Abdominal pain, generalized CBC AND DIFFERENTIAL Routine 06/21/2017 3:38 PM EST Abdominal pain, generalized LIPASE Routine 06/21/2017 3:38 PM EST Abdominal pain, generalized AMYLASE Routine 06/21/2017 3:38 PM EST Abdominal pain, generalized documented in this encounter Results * Tissue transglutaminase IgA (06/21/2017 3:38 PM EST) TTG IGA ANTIBODY <1.2 <4.0 (Negative) U/mL [facility] DPT OF LAB MED AND PAT+ Blood 06/21/2017 3:38 PM EST 06/21/2017 3:42 PM EST us Robert Carver MD LAB BLOOD ORDERABLES Final Re sult [facility] DPT OF LAB MED AND PAT+ [address] [place] [address] * Sedimentation rate (ESR) (06/21/2017 3:38 PM EST) ESR 1 0 - 20 mm/h [facility] Blood 06/21/2017 3:38 PM EST 06/21/2017 3:41 PM EST us Robert Carver MD LAB BLOOD ORDERABLES Final Re sult [facility] [address] [place] [address] * Lipase (06/21/2017 3:38 PM EST) LIPASE 29 16 - 63 U/L [facility] Blood 06/21/2017 3:38 PM EST 06/21/2017 3:41 PM EST us Robert Carver MD LAB BLOOD ORDERABLES Final Re sult Performing Organization Address City/[facility] Co de Phone Number [address] [address] * Amylase (06/21/2017 3:38 PM EST) AMYLASE 59 28 - 100 U/L [facility] Blood 06/21/2017 3:38 PM EST 06/21/2017 3:41 PM EST us Robert Carver MD LAB BLOOD ORDERABLES Final Re sult Performing Organization Address [facility] de Phone Number [address] [address] * (ABNORMAL) Comprehensive metabolic panel (06/21/2017 3:38 PM EST) SODIUM 144 133 - 146 mmol/L [facility] POTASSIUM 4.1 3.3 - 5.1 mmol/L [facility] CHLORIDE 106 96 - 108 mmol/L [facility] CO2 28 21 - 35 mmol/L [facility] BUN 10 6 - 19 mg/dL [facility] CREATININE 0.60 0.5 - 1.5 mg/dL [facility] GLUCOSE 106(H) 70 - 99 mg/dL [facility] ALBUMIN 4.6 3.9 - 4.8 g/dL [facility] TOTAL PROTEIN 6.7 6.5 - 8.0 g/dL [facility] CALCIUM 9.8 8.4 - 10.3 mg/dL [facility] ALKALINE PHOSPHATASE 107(L) 117 - 390 U/L [facility] Comment: Growing children can transiently show ALKPHOS activity up to 700 U/L TOTAL BILIRUBIN 0.6 0 - 1.2 mg/dL [facility] AST 12 0 - 37 U/L [facility] ALT <5 0 - 40 U/L [facility] GLOBULIN 2.1 1 - 4.8 g/dL [facility] EGFR >60 mL/min/1.7 3m2 [facility] Comment:NKDEP (National Kidn ey Disease Education Program) does not endorse the use of the MDRD (Modification of Diet in Renal Disease) equation for estimating GFR in patients that are not between the ages of 18 and 70. ANION GAP 14 10 - 20 mmol/L [facility] Blood 06/21/2017 3:38 PM EST 06/21/2017 3:41 PM EST us Robert Carver MD LAB BLOOD ORDERABLES Final Re sult [facility] [address] [place], [place] [id number] * CBC and differential (06/21/2017 3:38 PM EST) WBC 6.48 3.40 - 11.20 K/uL [facility] RBC 4.35 3.80 - 4.80 M/uL [facility] HGB 13.0 12.0 - 15.0 g/dL [facility] HCT 38.5 36.0 - 46.0 % [facility] PLT 247 130 - 400 K/uL [facility] MCV 88.5 79.0 - 98.0 fL [facility] MCH 29.9 25.0 - 35.0 pg [facility] MCHC 33.8 31.0 - 37.0 g/dL [facility] RDW 11.7 10.8 - 14.6 % [facility] MPV 11.4 9.4 - 12.4 fl [facility] NRBC 0.00 /100 WBCs [facility] ABSOLUTE NRBC 0.00 K/uL [facility] DIFF METHOD Auto [facility] NEUTS 55.9 45.30 - 77.70 % [facility] LYMPHS 35.3 12.30 - 39.70 % [facility] MONOS 6.3 4.10 - 12.80 % [facility] EOS 1.7 0 - 7.2 % [facility] BASOS 0.6 0 - 2.80 % [facility] Granulocytes, immature (%) 0.2 0.0 - 0.9 % [facility] ABSOLUTE NEUTS 3.62 1.40 - 7.70 K/uL [facility] ABSOLUTE LYMPHS 2.29 0.60 - 3.20 K/uL [facility] ABSOLUTE MONOS 0.41 0.11 - 0.59 K/uL [facility] ABSOLUTE EOS 0.11 0.01 - 0.50 K/uL [facility] ABSOLUTE BASOS 0.04 0.00 - 0.08 K/uL [facility] Granulocytes, immature 0.01 0.00 - 0.05 K/uL [facility] Blood 06/21/2017 3:38 PM EST 06/21/2017 3:41 PM EST us Robert Carver MD LAB BLOOD ORDERABLES Final Re sult [facility] [address] [place] [address] documented in this encounter Visit Diagnoses Diagnosis Abdominal pain, generalized- Primary documented in this encounter Additional Health Concerns Infection Onset Date Last Indicated Resolved Time CoV-Risk 11/23/2021 11/23/2021 12/04/2021 1:22 AM EDT documented as of this encounter Care Teams Equine Internship Relationship Specialty Start Date End Date Vidya Marin NP [address] [place] [address] [email or web address] PCP - General Family Medicine 06/21/17 03/23/21 Jyoti James MD [address] [place] [address], [address] [place] [address] [email or web address] PCP - General Family Medicine 03/24/21 documented as of this encounter Additional Source Comments The information contained in this document represents components of the legal health record. It is not the complete legal health record.[facility]
--- OUTSIDE RECORDS SUMMARY | 2025-02-27 10:19 | XMS_ITS | Encounter Summary ---
Author Organization [facility] Address [address] [place] [address] Phone Care Team Providers Care Run Boat Operator Name Role Phone Vidya Marin CHANDLER Primary Care Provider [phone] Reason for Visit * Reason Comments Med Refill Encounter Details Date Type Department Care Team ([facility] st Contact Info) Description 08/17/2021 Refill [facility] - [place] [address] [place] [address] Valerie Crowley MD [address] [place] [address] Intractable migraine without aura and without status migrainosus Social History Tobacco Use Types Packs/Day Years [...] there wasn't enough money for food? No 08/31/2020 Stable Housing Answer Date Recorded Are you worried that in the next 2 months you may not have stable housing? No 08/31/2020 Transportation Concerns Answer Date Rec orded In the last 12 months, have you or your family ever had to go without healthcare because you didn't have a way to get there? No 08/31/2020 Hazards in Home Answer Date Recorded Think about the place you li ve. Do you have problems with any of the following? Pests (mice or roaches), mold, no/not working smoke detectors, water leaks, no window guards. No 2020 Financing Utilities Answer Date Recorde d In the last 12 months, has t he electric, gas, oil, or water company threatened to shut off your services in your home? No 08/31/2020 Safety at Home Answer Date Recorded Are you or your family worried about feeling saf e in your home? No 08/31/2020 Outside Support Answer Date Recorded Do you feel that you need mo re support from other people or programs to help you care for yourself or your family? No 08/31/2020 Understanding Health Concerns Answer Da te Recorded Do you need help understandi ng your or your child's healthcare needs (diagnosis, medications, plan, etc.)? No 08/31/2020 Financing Health Concerns Answer Date R ecorded In the last 12 months, was t here a time when your child needed to see a doctor or get medications or supplies but could not because of cost? No 08/31/2020 Missing School or Work Answer Date Ayo rded Did you or your child miss s chool or work because of a health problem that could have been avoided? No 08/31/2020 Comments No Sex and Gender Information Value Date Recorded Sex Assigned at Not on file Legal Sex Female 11:14 PM EST Gender Identity Female 03/14/2020 6:23 PM EDT Sexual Orientation Not on file documented as of this encounter Plan of Treatment Not on file documented as of this encounter Visit Diagnoses Diagnosis Intractable migraine without aura and without status migrainosus documented in this encounter Care Teams Run Boat Operator Relationship Specialty Start Date End Date Vidya Marin NP [address] [place] [address] PCP - General 07/25/16 01/15/24 documented as of this encounter
--- OUTSIDE RECORDS SUMMARY | 2025-02-27 10:19 | XMS_ITS | Encounter Summary ---
Author Organization [facility] Address [address] [place] [address] Phone Care Team Providers Care Handmade Tile Artist Name Role Phone Vidya Marin CHANDLER Primary Care Provider [phone] Reason for Visit * Reason Onset Date Comments Med Refill needs appt first, call pt 11/08/2021 Encounter Details Date Type Department Care Team (Late st Contact Info) Description 11/08/2021 Refill [facility] - [place] [address] [place] [address] Valerie Crowley MD [address] [place] [address] Intractable migraine without aura and without status [...] encounter Miscellaneous Notes * Telephone Encounter - Irma Spence - 11/28/2021 3:00 PM EDT Left message to call back and schedule appointment and sent a text message * Telephone Encounter - Irma Spence - 11/18/2021 9:26 AM EDT Left message to call back and schedule appointment. * Telephone Encounter - Irma Spence - 11/10/2021 9:55 AM EDT Left message to call back and schedule appointment and sent a portal message * Telephone Encounter - Vidya Marin NP - 11/10/2021 6:00 AM EDT Got RF request for amitritylline, hasn't been refilled since Jan 2021- hasn't been seen in many months, RF refused, pls call pt-needs appt first (20 min) thank you documented in this encounter Plan of Treatment Not on file documented as of this encounter Visit Diagnoses Diagnosis Intractable migraine without aura and without status migrainosus documented in this encounter Care Teams Handmade Tile Artist Relationship Specialty Start Date End Date Vidya Marin NP [address] [place] [address] PCP - General 07/25/16 01/15/24 documented as of this encounter
--- OUTSIDE RECORDS SUMMARY | 2025-02-27 10:19 | XMS_ITS | Encounter Summary ---
Author Organization [facility] Address [address] [place] [address] [place] [address] Phone Care Team Providers Care Bioinformatics Software Engineer Name Role Phone Vidya Marin NP Primary Care Provide r Jyoti James MD Primary Care Provider [phone] Encounter Details Date Type Department Care Team (Latest Contact Info) Description 07/29/2017 Transcribe Orders [facility] Specimen Processing [address] [place] [address] Robert Carver MD [address] [facility], [facility] [address] [place] [address] [email or web address] Abdominal pain, unspecified abdominal location (Primary Dx) Social History Tobacco Use Types [...] documented as of this encounter Results * H. pylori antigen, stool (07/29/2017 9:55 AM EST) [facility] Negative Negative [facility] DPT OF LAB MED AND PAT+ Stool (Stool) 07/29/2017 9:5 5 AM EST 07/29/2017 10:47 AM EST us Robert Carver MD BODY FLUIDS AND STOOLS ORDERA BLEFl[place] Final Result [facility] DPT OF LAB MED AND PAT+ [address] [address] [place] [address] documented in this encounter Visit Diagnoses Diagnosis Abdominal pain, unspecified abdominal location- Primary documented in this encounter Additional Health Concerns Infection Onset Date Last Indicated Resolved Time CoV-Risk 11/23/2021 11/23/2021 12/04/2021 1:22 AM EDT documented as of this encounter Care Teams Bioinformatics Software Engineer Relationship Specialty Start Date End Date Vidya Marin NP [address] [place] [address] [email or web address] PCP - General Family Medicine 06/21/17 03/23/21 Jyoti James MD [address] [facility], [address] [place] [address] PCP - General Family Medicine 03/24/21 documented as of this encounter Additional Source Comments The information contained in this document represents components of the legal health record. It is not the complete legal health record.[facility]
--- OUTSIDE RECORDS SUMMARY | 2025-02-27 10:19 | XMS_ITS | Encounter Summary ---
Author Organization [facility] Address [address] [place] [address] [place] [address] Phone Care Team Providers Care Psychologist Experimental Name Role Phone Vidya Marin NP Primary Care Provide r Jyoti James MD Primary Care Provider [phone] Encounter Details Date Type Department Care Team (Late st Contact Info) Description 01/18/2018 Transcribe Orders [facility] Laboratory [address] [place] [address] Carlos Goldman MD [facility]4 [place] [address] [email or web address] Dizziness and giddiness (Primary Dx) Social History Tobacco Use Types [...] documented as of this encounter Results * Ferritin (01/18/2018 11:14 AM EDT) FERRITIN 26 13 - 150 ug/L [facility] Blood 01/18/2018 11:1 4 AM EDT 01/18/2018 11:16 AM EDT us Carlos Goldman MD LAB BLOOD ORDERABLES Final Result Performing Organization Address City/[facility]/ZIP Co de Phone Number [address] [address] * Iron and iron binding capacity (01/18/2018 11:14 AM EDT) IRON 112 30 - 160 ug/dL [facility] IRON BINDING CAPACITY 318 228 - 428 ug/dL [facility] TRANSFERRIN SATURAT. 35 15 - 50 % [facility] Blood 01/18/2018 11:1 4 AM EDT 01/18/2018 11:16 AM EDT us Carlos Goldman MD LAB BLOOD ORDERABLES Final Result Performing Organization Address City/[facility] Co de Phone Number [address] [address] * CBC and differential (01/18/2018 11:14 AM EDT) WBC 6.28 3.40 - 11.20 K/uL [facility] RBC 4.42 3.80 - 4.80 M/uL [facility] HGB 13.4 12.0 - 15.0 g/dL [facility] HCT 40.3 36.0 - 46.0 % [facility] PLT 227 130 - 400 K/uL [facility] MCV 91.2 79.0 - 98.0 fL [facility] MCH 30.3 25.0 - 35.0 pg [facility] MCHC 33.3 31.0 - 37.0 g/dL [facility] RDW 12.6 10.8 - 14.6 % [facility] MPV 11.0 9.4 - 12.4 fl [facility] NRBC 0.00 /100 WBCs [facility] ABSOLUTE NRBC 0.00 K/uL [facility] DIFF METHOD Auto [facility] NEUTS 58.9 45.30 - 77.70 % [facility] LYMPHS 29.5 12.30 - 39.70 % [facility] MONOS 8.0 4.10 - 12.80 % [facility] EOS 2.7 0 - 7.2 % [facility] BASOS 0.6 0 - 2.80 % [facility] Granulocytes, immature (%) 0.3 0.0 - 0.9 % [facility] ABSOLUTE NEUTS 3.70 1.40 - 7.70 K/uL [facility] ABSOLUTE LYMPHS 1.85 0.60 - 3.20 K/uL [facility] ABSOLUTE MONOS 0.50 0.11 - 0.59 K/uL [facility] ABSOLUTE EOS 0.17 0.01 - 0.50 K/uL [facility] ABSOLUTE BASOS 0.04 0.00 - 0.08 K/uL [facility] Granulocytes, immature 0.02 0.00 - 0.05 K/uL [facility] Blood 01/18/2018 11:1 4 AM EDT 01/18/2018 11:16 AM EDT us Carlos Goldman MD LAB BLOOD ORDERABLES Final Result Performing Organization Address City/State/[facility] Co de Phone Number [facility] [address] [place] [address] documented in this encounter Visit Diagnoses Diagnosis Dizziness and giddiness- Primary documented in this encounter Additional Health Concerns Infection Onset Date Last Indicated Resolved Time CoV-Risk 11/23/2021 11/23/2021 12/04/2021 1:22 AM EDT documented as of this encounter Care Teams Psychologist Experimental Relationship Specialty Start Date End Date Vidya Marin NP [address] [place] [address] [email or web address] PCP - General Family Medicine 06/21/17 03/23/21 Jyoti James MD [address] [place] [address], [address] [place] [address] [email or web address] PCP - General Family Medicine 03/24/21 documented as of this encounter Additional Source Comments The information contained in this document represents components of the legal health record. It is not the complete legal health record.[facility]
--- OUTSIDE RECORDS SUMMARY | 2025-02-27 10:19 | XMS_ITS | Encounter Summary ---
Author Organization [facility] Address [address] [place] [address] Phone Care Team Providers Care Neurology Physician Assistant Name Role Phone Vidya Marin SKIVER OPERATOR Primary Care Provider [phone] Reason for Visit * Reason Comments Med Refill Encounter Details Date Type Department Care Team ([facility] st Contact Info) Description 11/21/2020 Refill [facility] - [place] [address] [place] [address] Vidya Marin NP [address] [place] [address] Intractable migraine without aura and without status [...] migrainosus documented in this encounter Care Teams Neurology Physician Assistant Relationship Specialty Start Date End Date Vidya Marin NP [address] [place] [address] PCP - General 07/25/16 01/15/24 documented as of this encounter
--- OUTSIDE RECORDS SUMMARY | 2025-02-27 10:19 | XMS_ITS | Encounter Summary ---
Author Organization [facility] Address [address] [place] [address] Phone Care Team Providers Care Standards Engineer Name Role Phone Vidya Marin REPEATER CHIEF Primary Care Provider [phone] Reason for Visit * Reason Onset Date Comments Med Refill-pls schedule medcheck 04/16/2020 Encounter Details Date Type Department Care Team (Late st Contact Info) Description 04/16/2020 Refill [facility] - [place] [address] [place] [address] Vidya Marin NP [address] [place] [address] Anxiety Social History Tobacco Use Types Packs/Day [...] encounter Miscellaneous Notes * Telephone Encounter - Jessica Britt - 05/27/2020 12:11 PM EST Patient schedule 06/01 with KD * Telephone Encounter - Georgiana Shelton - 04/27/2020 11:03 AM EST [employer] message sent, requesting a call back to schedule appt. * Telephone Encounter - Vidya Marin NP - 04/19/2020 6:26 AM EST Please schedule medcheck (sertraline) in person thank you documented in this encounter Plan of Treatment Not on file documented as of this encounter Visit Diagnoses Diagnosis Anxiety Anxiety state, unspecified documented in this encounter Care Teams Standards Engineer Relationship Specialty Start Date End Date Vidya Marin NP [address] [place] [address] PCP - General 07/25/16 01/15/24 documented as of this encounter
--- OUTSIDE RECORDS SUMMARY | 2025-02-27 10:19 | XMS_ITS | Encounter Summary ---
Author Organization [facility] Address [address] [place] [address] Phone Care Team Providers Care Heavy Repairer Name Role Phone Vidya Marin NP Primary Care Provide r Jyoti James MD Primary Care Provider [phone] Encounter Details Date Type Department Care Team (Late st Contact Info) Description 06/21/2017 Ancillary Orders [facility], X[facility] - [facility] [address] [place] [address] Robert Carver MD [address] [facility], [address] [place] [address] [email or web address] Abdominal pain, generalized Social History Tobacco Use [...] as of this encounter Results * XR ABDOMEN 1 VIEW (06/21/2017 4:14 PM EST) Anatomical Region Laterality Modality Abdomen Radiographic Tawny ging 06/21/2017 5:42 PM EST Impressions 06/21/2017 5:45 PM EST Relatively distended stomach containing particulates. Correlation with when the patient last ate is needed to determine if this is pathologic. Otherwise non- specific plain film appearance of the abdomen and pelvis POS [id number] Narrative 06/21/2017 5:45 PM EST Two AP supine views Modest volume of stool in the descending and mid transverse colon but little elsewhere. The appearance does not suggest constipation. Particulates are visible in the stomach. Correlation with when the patient last ate is needed to determine whether this might indicate bezoar or impaired gastric emptying. The stomach is quite distended. No suspicious calcifications or obvious soft tissue masses. Procedure Note Leena Flanagan MD - 06/21/2017 Two AP supine views Modest volume of stool in the descending and mid transverse colon butlittle elsewhere. The appearance does not suggest constipation. Particulates are visible in the stomach. Correlation with when the patientlast ate is needed to determine whether this might indicate bezoar orimpaired gastric emptying. The stomach is quite distended. No suspicious calcifications or obvious soft tissue masses. IMPRESSION: Relatively distended stomach containing particulates. Correlation withwhen the patient last ate is needed to determine if this is pathologic.Otherwise non- specific plain film appearance of the abdomen and pelvis POS [id number] us Robert Carver MD IMG XR ABDOMEN Final Result documented in this encounter Visit Diagnoses Diagnosis Abdominal pain, generalized Abdominal pain, generalized documented in this encounter Additional Health Concerns Infection Onset Date Last Indicated Resolved Time CoV-Risk 11/23/2021 11/23/2021 12/04/2021 1:22 AM EDT documented as of this encounter Care Teams Heavy Repairer Relationship Specialty Start Date End Date Vidya Marin NP [address] [place] [address] [email or web address] PCP - General Family Medicine 06/21/17 03/23/21 Jyoti James MD [address] [place] [address] [address] [place] [address] [email or web address] PCP - General Family Medicine 03/24/21 documented as of this encounter Additional Source Comments The information contained in this document represents components of the legal health record. It is not the complete legal health record.[facility]
--- OUTSIDE RECORDS SUMMARY | 2025-02-27 10:19 | XMS_ITS | Encounter Summary ---
Author Organization [facility] Address [address] [place] [address] Phone Care Team Providers Care Cigarette Tester Name Role Phone Vidya Marin UTILITY WORKER DRIVER Primary Care Provider Reason for Visit * Reason Comments Med Refill Encounter Details Date Type Department Care Team ([facility] st Contact Info) Description 08/24/2020 Refill [facility] - [place] [address] [place] [address] Vidya Marin NP [address] [place] [address] Intractable migraine without aura and without status [...] migrainosus documented in this encounter Care Teams Cigarette Tester Relationship Specialty Start Date End Date Vidya Marin NP [address] [place] [address] PCP - General 07/25/16 01/15/24 documented as of this encounter
--- OUTSIDE RECORDS SUMMARY | 2025-02-27 10:19 | XMS_ITS | Encounter Summary ---
Author Organization [facility] Address [address] [place] [address] Phone Care Team Providers Care Mold Sheet Cleaner Name Role Phone Vidya Marin CHANDLER Primary Care Provider [phone] Reason for Visit * Reason Comments Med Refill Encounter Details Date Type Department Care Team ([facility] st Contact Info) Description 07/04/2020 Refill [facility] - [place] [address] [place] [address] Valerie Crowley MD [address] [place] [address] Intractable migraine without aura and without status [...] migrainosus documented in this encounter Care Teams Mold Sheet Cleaner Relationship Specialty Start Date End Date Vidya Marin NP [address] [place] [address] PCP - General 07/25/16 01/15/24 documented as of this encounter
--- OUTSIDE RECORDS SUMMARY | 2025-02-27 10:19 | XMS_ITS | Clinical Summary ---
Author Organization [facility] Address [address] [place] [address] [place] [phone] Phone Care Team Providers Care Sound Engineering Technician Name Role Phone Jyoti James MD Primary Care Provider [phone] Allergies No known active allergies Medications SUMAtriptan (IMITREX) 50 MG tabletIndicatio ns:Migraine with aura and without status migrainosus, not intractable Take one tab by mouth every 2 hours x 2 doses as needed for migraine MORALES; do not take more than 200mg in 24 hours 10 tablet 6 3 Active tretinoin (RETIN-A) 0.05 % creamIndication s:Acne vulgaris Apply topically nightly at bedtime. 45 g 11 4 Active benzonatate (TESSALON) 100 MG capsule Take 1 capsule (100 mg total) by mouth 3 (three) times a day as needed for cough. 20 capsule 4 Active Additional Information Patient not taking.Reported on 11/10/2024 OXcarbazepine (TRILEPTAL) 300 MG IMMEDIATE release tablet Take 1 tablet (300 mg total) by mouth 2 (two) times a day. To be taken with a 150mg tablet 180 tablet 5 Active OXcarbazepine (TRILEPTAL) 150 MG IMMEDIATE release tablet Take 1 tablet (150 mg total) by mouth 2 (two) times a day. To be taken with a 300mg tablet 180 tablet 5 Active spironolactone (ALDACTONE) 50 MG tablet Take 1 tablet (50 mg total) by mouth 2 (two) times a day. 180 tablet 1 5 Active norethindrone (MICRONOR) 0.35 mg tablet Take 1 tablet (0.35 mg total) by mouth daily. 90 tablet 3 5 Active norethindrone (MICRONOR) 0.35 mg tablet Take 1 tablet (0.35 mg total) by mouth daily. 90 tablet 3 5 025 Discontin ued(Reord er) Active Problems Problem Noted Date Diagnosed Date Sore throat 11/20/2023 Assessment & Plan (11/20/2023 4:23 PM EDT): Assessment & Plan Pharyngitis: Sore throat since Sunday with associated fever, body aches, and cough. Negative COVID tests. Low suspicion for strep. -Perform rapid strep test and call patient if positive. -If positive, prescribe Penicillin. -If negative, likely viral pharyngitis. Continue supportive care with ibuprofen, Dayquil, Nyquil, honey, salt water gargles, and lozenges. -If symptoms worsen, patient to notify clinic. Acute cough 11/20/2023 Assessment & Plan (11/20/2023 4:24 PM EDT): Cough: Persistent cough causing concern for upcoming flight. -Prescribe Tessalon up to three times a day as needed for cough. Family history of breast cancer 08/03/2022 Assessment & Plan (08/03/2022 3:38 PM EST): Advised breast self exams for now, additional cancer screening recs as she gets older. Seizure disorder 06/09/2022 Overview (06/09/2022): Neurologist: Dr Cates at [facility]. EEG w/ sharp theta waves 04/2022 and 05/2022. CT head WNL 03/2022. Failed: topiramate. Now: oxcarbazepine. Assessment & Plan (08/03/2022 3:37 PM EST): She is now well controlled on oxcarbazepine w/o any additional episodes of passing out. She still gets light headed from time to time so there may be an element of POTS underneath it all, but the majority of her episodes have been proven to be due to seizure d/o. She is well managed by neurology (Dr Cates, [facility]) Chronic idiopathic constipation 08/26/2021 Assessment & Plan (08/26/2021 12:42 PM EDT): Expect she has IBS/c given concurrent abd pain w/ constipation. Discussed stool maintenance plan which I've put in her pt instructions, gradient of psyllium ==> miralax ==> senna and her mom will monitor laxative intake to avoid overuse. Eating disorder, unspecified 03/24/2021 Assessment & Plan (08/03/2022 3:38 PM EST): In much better shape w/ remission of ED symptoms. Offered reassurance re meds and wt changes. Assessment & Plan (08/26/2021 12:41 PM EDT): See above. Assessment & Plan (03/24/2021 9:35 PM EDT): Combined restrictive + purge w/ working out. Not a priority to discuss today but did touch on ideas of bodily autonomy and control and how that informs our experience of food intake. Expect ED recovery will be part of our discussion in future but for now we will focus on headache control. Recommend working w a therapist who is experienced in ED recovery as well as anxiety/depression. Migraine with aura and witho ut status migrainosus, not intractable 11/11/2020 Overview (08/03/2022): Failed: amitriptyline (dry mouth), propranolol (hypotension); success with topiramate. Saw Dr Cates (neuro, [facility]) now on verapamil. Assessment & Plan (08/03/2022 3:37 PM EST): 8 MORALES days per month which she finds manageable. Refilled her sumatriptan as it does abort the MORALES when they occur. She will check in w/ Dr Cates about migraines in the future. Assessment & Plan (08/26/2021 12:40 PM EDT): Continue topiramate. Assessment & Plan (03/30/2021 6:02 PM EDT): Stop propranolol. Start topiramate 25mg nightly, then twice daily, then 50mg nightly and 25mg qAM. Discussed s/e of cog fog and reduced appetite. F/U via telemed in 2 weeks to check in. Assessment & Plan (03/24/2021 9:39 PM EDT): Discussed at length the three main types of headache that she is experiencing, (1) chronic background daily headache, (2) tension headache, which often leads to (3) migraine headache w/ neurologic sequelae. Discussed r/b and s/e of various tx. Will start with longacting propranolol, which may help with POTS symptoms as well. Undernourishment can also worsen POTS. Take sumatriptan PRN alongside either 800mg ibuprofen or 660mg naproxen (NOT BOTH) for migraine and repeat in 2 hours after first dose if MORALES has not abated with first dose. F/U with me via phone in 2 weeks to check in. If propranolol is not helping will try topiramate. Orthostatic hypotension 01/27/2018 Overview (08/26/2021): Hx of cardiology consult 2018. Normal event monitor, CBC. Florinef trial did not help, nor did midodrine. Referral to [facility] neurology pending. Assessment & Plan (08/26/2021 12:40 PM EDT): S/p cardiology workup a few years back. Will input referral to neurology at [facility] for tilt table test eval. Suspect there is a mind-body component to this. I also can't get a clear assessment on how much her eating d/o might be impacting this re: enough food intake vs laxative intake. I really do think she needs a careful eating d/o eval but neither she or her mom think this is warranted just yet. Assessment & Plan (03/30/2021 6:04 PM EDT): Did not tolerate propranolol due to BP crash. Assessment & Plan (03/24/2021 9:41 PM EDT): Chart review reveals hx of cardiology w/u that was helpful w/ florinef trial that was not helpful. Affected by headaches, likely by food intake as well. Will continue to monitor. Potentially will be helped by BB. Dysmenorrhea 12/27/2017 Overview (03/24/2021): Nausea, shaking and sweating 3rd day into period. Trial of control. Hyperhidrosis 10/03/2015 Acne vulgaris 03/11/2015 Overview (03/24/2021): 06/14/20-followed by Carlos Mcmahon at [facility]. Tried retin A topically x 2mo then added 1 mo minocin 100mg BID with planned f/u, also Rxs BP wash Allergic rhinitis 03/01/2015 Generalized anxiety disorder Assessment & Plan (03/24/2021 9:37 PM EDT): Adding propranolol may facilitate improvement in physical sx of anxiety. Recurrent major depression Assessment & Plan (08/26/2021 12:41 PM EDT): Feeling quite aware she is depressed. Continue sertraline as rx'd. Expect she would benefit from working with a therapist, but hard to find one these days as well as pay for one. Assessment & Plan (03/24/2021 9:36 PM EDT): Quite profoundly depressed at this time, w/ hx of self harm and suicidality. Hx of challenges within the home that have significant input into Alisha's current mental health. Currently on sertraline 100mg, will increase to 150mg in future when we have the headaches a bit more under control. Resolved Problems Problem Noted Date Diagnosed Date Resolved Date right Krzysztof, initial encounter 05/06/2018 11/11/2020 Major depression, recurrent 03/24/2021 Major depression, recurrent 03/24/2021 Major depression, recurrent 03/24/2021 Immunizations Immunization Administration Dates Next Due COVID-19 (Pre-03/26) Pfizer Vaccine, mRNA, PF 06/20/2021,06/20/2021,10/14/2020,10/14,09/20/2020,09/20/2020 DTaP 09/11/2006, 4,02/25/2003,12/24,2002 HPV,quadrivalent 03/18/2014,12/09/2013, 4 Hepatitis A, ped/adol, 2 dose 08/31/2020, 020 Hepatitis B 05/26/2003,2002 Hepatitis B Adult 02/21/2023, 3,05/26/2003,09/23,2002 Hib,PRP-T 11/26/2003, 3,2002,10/30 INFLUENZA, SPLIT VIRUS, TRIVALENT PF 03/07/2024 IPV 09/11/2006, 4,2002,10/30 Influenza Quadrivalent Intranasal 03/20/2015,08/2013,03/07/2013 Influenza Quadrivalent MDCK Preservative Free IM 02/28/2019,04/04/2018 Influenza Quadrivalent Prese rvative Free IM 02/21/2023,04/24/2022,03/24/2021,03/15,04/05/2018,04/13/2017,03/07/2016 Influenza quadrivalent nasal 05/23/2012,04/11/20 11,03/29/2010 Influenza, Unspecified Formulation 02/21,02/10/2009,02/18/2008,05/04,04/02/2004 MMR 09/11/2006,11/26/2003,11/26/2003 MMRV 09/11/2006 Meningococcal MCV4P 08/21/2019,09/29/2013 Pneumococcal conjugate, PCV 7 08/11/2004 ,02/25/2003,2002,10/30 Tdap 02/20/2024,09/29/2013 Varicella 09/11/2006,08/27/2003,08/27/2003 Family History Medical History Relation Comments No Known Problems Father Stomach cancer Maternal Grandfather Cervical cancer Maternal Grandmother Anxiety disorder Mother Breast cancer Mother Depression Mother Endometriosis Mother Lung cancer Paternal Grandfather Diabetes Paternal Grandmother Anxiety disorder Sister 1 Anxiety disorder Sister 2 Relation Status Comments Father Alive Maternal Grandfather Maternal Grandmother Mother Alive Paternal Grandfather Paternal Grandmother Sister 1 Sister 2 Social History Tobacco Use Types Packs/Day Years Used Date Smoking Tobacco: Never Smokeless Tobacco: Never Tobacco Cessation:Counseling Given: Not Answered Alcohol Use Standard Drinks/Week Comments No 0 (1 standard drink = 0.6 oz pur e alcohol) Child or Family Care Answer Date Record ed Do you have problems with on e of the following making it difficult for you to work, study, or receive health care? No 03/24/2021 Education Answer Date Recorded Are you interested in more education? Not on richard e 03/25/2023 Are you concerned about learning? Not on file 03/25/2023 No 03/25/2023 No 03/25/2023 Food Answer Date Recorded Within the past 6 months we worried whether our food would run out before we got money to buy more. Never True 03/24/2021 Within the past 6 months the food we bought just didn't last and we didn't have enough money to get more. Never True Residential Stability Answer Date Recor ded What is your housing situation today? I have agapito cobian 03/24/2021 How many times have you move d in the past 12 months? Zero (I did not move) 03/24/2021 Paying for Meds Answer Date Recorded Do you have trouble paying for medicines? No 03/24/2021 Paying Utility Bills Answer Date Record ed Do you have trouble paying your heating or elect ricity bill? No 03/24/2021 Transportation Answer Date Recorded Has the lack of transportati on kept you from medical appointments or from getting medications? No 03/24/2021 Unemployment Answer Date Recorded Are you currently unemployed or working on a part-time or temporary basis, and looking for work? No 03/24/2021 Digital Access Answer Date Recorded No 10/24/2022 No 10/24/2022 Reliable internet access at home? Not on file 10/24/2022 Device with a working camera? Not on file Intimate Partner Violence Answer Date R ecorded Are you denied basic needs s uch as food, clothing, or medical care? No 06/02/2024 In the past 12 months have y ou been in a relationship with a person who hurts, threatens, or tries to control you? No 06/02/2024 Are you denied basic needs s uch as food, clothing, or medical care? No 06/02/2024 In the past 12 months have y ou been in a relationship with a person who hurts, threatens, or tries to control you? No 06/02/2024 Comments No Sex and Gender Information Value Date Recorded Sex Assigned at Female 06/02/2024 11:55 AM EST Legal Sex Female 8:44 PM EDT Gender Identity Female 06/02/2024 11:55 AM EST Sexual Orientation Don't know 06/02/2024 12 :08 PM EST Last Filed Vital Signs Vital Sign Reading Time Taken Comments Blood Pressure 108/62 11/03/2024 3:26 PM EDT Pulse 82 11/03/2024 3:26 PM EDT Temperature 36.7 C (98 F) 11/03/2024 3:26 PM EDT Respiratory Rate 14 06/02/2024 1:33 PM EST Oxygen Saturation 98% 11/03/2024 3:26 PM EDT Inhaled Oxygen Concentration - - Weight 72.6 kg (160 lb) 06/02/2024 11:54 AM EST Height 167.6 cm (5' 6 ) 06/02/2024 11:54 AM EST Body Mass Index 25.82 06/02/2024 11:54 AM EST Plan of Treatment Health Maintenance Due Date Last Done Comments MENINGOCOCCAL VACCINES (B) (1 of 2 - Standard) 2018 HEPATITIS C SCREENING 2020 DEPRESSION SCREENING 03/24/2022 03/24/2021, 03/24/20 CHLAMYDIA SCREENING 08/04/2023 08/03/2022, 08/31/2020, 08/21/2019, Additional history exists PAP SMEAR 08/19/2023 INFLUENZA VACCINE (#1) 2025 , 02/21/2023, 02/21/2023, Additional history exists COVID-19 VACCINE ( season) 2025 06/20/2021, 06/20/2021, 06/20/2021, Additional history exists SMOKING Hx and SMOKELESS TOBACCO SCREENING 05/26/2025 05/26/2024 POTASSIUM LEVEL 06/02/2025 06/02/2024, 07/2022, 11/22/2020, Additional history exists Adult Td,Tdap Booster 02/19/2034 02/20/2024, 014 HIB VACCINES Completed 11/26/2003, 02/03, 2002, Additional history exists PNEUMOCOCCAL VACCINES (0-49 years) Aged Out 08/11/2004, 02/25/2003, 2002, Additional history exists No longer eligible based on patient's age to complete this topic HPV VACCINES Completed 03/18/2014, 01/2014, 09/29/2013 MENINGOCOCCAL VACCINES (ACWY) Completed 08/21/2019, 09/29/2013 HEPATITIS A VACCINES Completed 08/31/2020, 08/21/19 HIV ONE-TIME SCREENING (18-65 YEARS) Completed 08/03/2022 Medical Devices Not on file Procedures Procedure Name Priority Date/Time Associated Diagnosis Comments BASIC METABOLIC PANEL STAT 06/02/2024 12:29 PM EST CHLAMYDIA TRACHOMATIS AND NEISSERIA GONORRHOEAE NUCLEIC ACID DETECTION Routine 08/03/2022 3:45 PM EST Screen for STD (sexually transmitted disease) from Last 3 Months or Most Recently Relevant to Health Maintenance Results * Basic metabolic panel (06/02/2024 12:29 PM EST) SODIUM 138 133 - 146 mmol/L [facility] CHLORIDE 104 96 - 108 mmol/L [facility] POTASSIUM 4.5 3.3 - 5.1 mmol/L [facility] CO2 24 21 - 35 mmol/L [facility] BUN 7 6 - 19 mg/dL [facility] CREATININE 0.70 0.5 - 1.5 mg/dL [facility] GLUCOSE 98 70 - 99 mg/dL [facility] CALCIUM 9.4 8.4 - 10.3 mg/dL [facility] EGFR >120 >59 mL/min/1.7 3m2 [facility] Comment:Estimated glomerular filtration rate calculated using the CKD-EPI refit equation. ANION GAP 15 10 - 20 mmol/L [facility] Blood 06/02/2024 12:2 9 PM EST 06/02/2024 12:33 PM EST us Yoselyn Luna DO LAB BLOOD ORDERABLES Final Resul t Performing Organization Address City/[facility]/ZIP Co de Phone Number [address] [phone] * Chlamydia Trachomatis and Neisseria Gonorrhoeae Nucleic Acid Detection (08/03/2022 3:45 PM EST) CHLAMYDIA TRACHOMATIS Not Detected Not Detected [facility] NEISERIA GONORRHOEAE Not Detected Not Detected [facility] SPECIMEN TYPE URINE [facility] Urine (Urine) 08/03/2022 3:4 5 PM EST 08/03/2022 3:48 PM EST us Jyoti James MD NON CULTURE MICROBIOLOGY Final Result [address] [address] from Last 3 Months or Most Recently Relevant to Health Maintenance Insurance [employer] NET PARTIAL Member Subscriber Plan / Payer (Ef fective 2024-Present) Name:Alisha Ratliff Relation to Subscriber:Self Name:Alisha Ratliff Payer ID:Not on file Group ID:Not on file Type:Medicaid Address: [address] [employer] NET PARTIAL Member Subscriber Plan / Payer (Ef fective 2024-Present) Name:Alisha Ratliff Relation to Subscriber:Self Name:Alisha Ratliff Payer ID:Not on file Group ID:Not on file Type:Medicaid Address: [address] [employer] NET PARTIAL Member Subscriber Plan / Payer (Ef fective 2024-) Name:Alisha Ratliff Relation to Subscriber:Self Name:Alisha Ratliff Payer ID:Not on file Group ID:Not on file Type:Medicaid Address: [address] [employer] NET PARTIAL Member Subscriber Plan / Payer (Ef fective 2024-) Name:Alisha Ratliff Relation to Subscriber:Self Name:Alisha Ratliff Payer ID:Not on file Group ID:Not on file Type:Medicaid Address: [address] [employer] NET PARTIAL Member Subscriber Plan / Payer (Ef fective 2024-) Name:Alisha Ratliff Relation to Subscriber:Self Name:Alisha Ratliff Payer ID:Not on file Group ID:Not on file Type:Medicaid Address: [address] [employer] NET PARTIAL Member Subscriber Plan / Payer (Ef fective 2024-) Name:Alisha Ratliff Relation to Subscriber:Self Name:Alisha Ratliff Payer ID:Not on file Group ID:Not on file Type:Medicaid Address: [address] [employer] Care Teams Sound Engineering Technician Relationship Specialty Start Date End Date Jyoti James MD [address] [place] [address], [address] [place] [address] [email or web address] PCP - General Family Medicine 03/24/21 Additional Source Comments The information contained in this document represents components of the legal health record. It is not the complete legal health record.[facility]
--- OUTSIDE RECORDS SUMMARY | 2025-02-27 10:19 | XMS_ITS | Encounter Summary ---
Author Organization [facility] Address [address] [place] [address] [address] [place] [phone] Phone Care Team Providers Care Customer Operations Intern Name Role Phone Jyoti James MD Primary Care Provider [phone] Encounter Details Date Type Department Care Team (Late st Contact Info) Description 10/24/2022 Documentation [facility] Medicine [address] [place], [place] [id number] [facility] [phone] [place] [address] [email or web address] Social History Tobacco Use Types Packs/Day Years [...] Answer Date Recorded Are you interested in help w ith more adult education (for example, completing high school, GED, job training, learning the [place] language, technical skills, or developing parenting skills)? Yes 03/24/2021 Food Answer Date Recorded Within the past [...] with a working camera? Not on file Comments No Sex and Gender Information Value [...] filedocumented in this encounter Additional Health Concerns Assessment Noted Time PHQ-9 Depression Total Score: 20 021 2:50 PM EDT PHQ-2 Depression Total Score: 6 03/24/20 21 2:50 PM EDT documented as of this encounter Care Teams Customer Operations Intern Relationship Specialty Start Date End Date Jyoti James MD [address] [place] [address], [address] [place] [address] PCP - General Family Medicine 03/24/21 documented as of this encounter Additional Source Comments The information contained in this document represents components of the legal health record. It is not the complete legal health record.[facility]
--- OUTSIDE RECORDS SUMMARY | 2025-02-27 10:19 | XMS_ITS | Clinical Summary ---
Author Organization [facility] Address [address] [place], [place] [id number] Phone Care Team Providers Care Patient Financial Rep Name Role Phone Unavailable Primary Care Provider Unavailabl e Allergies No known active allergies Medications Loratadine (CLARITIN) 10 MG capsule Take 10 mg by mouth as needed. Active tretinoin 0.025 % cream APPLY TO FACE FOR ACNE AT BEDTIME 3 0 Active albuterol HFA 108 (90 Base) MCG/ACT inhalerIndicatio ns:Allergic rhinitis, unspecified seasonality, unspecified trigger TAKE 2 PUFFS BY MOUTH EVERY 4 HOURS NEEDED FOR WHEEZE 1 Units 1 Active norethindrone 0.35 MG tabletIndication s:Intractable migraine without aura and without status migrainosus,Dysm enorrhea Take 1 tablet (0.35 mg total) by mouth daily. 84 tablet 3 1 Active amitriptyline 10 MG tabletIndication s:Intractable migraine without aura and without status migrainosus TAKE 1 TABLET BY MOUTH EVERY DAY AT NIGHT 90 tablet 1 Active sertraline 100 MG tabletIndication s:Anxiety TAKE 1 TABLET BY MOUTH EVERY DAY 90 tablet 1 Active SUMAtriptan 25 MG tabletIndication s:Intractable migraine with aura without status migrainosus TAKE 1 TABLET (25 MG TOTAL) BY MOUTH ONCE NEEDED FOR MIGRAINE (MAY REPEAT IN 2 HOURS IF SYMPTOMS PERSIST) FOR UP TO 1 DOSE. MAY REPEAT DOSE ONCE IN 2 HOURS IF NO RELIEF. DO NOT EXCEED 2 DOSES IN 24 HOURS. 9 tablet 1 1 Active Active Problems Problem Noted Date Diagnosed Date Tonsillitis 06/17/2020 Assessment & Plan (06/17/2020 3:46 PM EST): Very likely strep with exposure to boyfriend who had positive strep test. Doubt mono or other cause. No sign of abscess. Will treat but call back if not better in 2- 3 days. Not worth coming to office for strep test in this circumstance and with this history/exam during covid pandemic. Intractable migraine without aura and without status migrainosus 06/01/2020 Overview (2020): Daily migrainous headaches not responding to supportive care and lifestyle changes. Discussed options for treatment, she is interested in a daily medication to help with headaches and sleep. Starting amitriptyline today. Recheck in 3 weeks. 08/18/20-08/18/20-EKG normal (on amitriptyline and SSRI at same time) Assessment & Plan (06/24/2020 2:40 PM EST): Some improvement on amitriptyline with decrease in frequency and duration of migraines. Still occurring 3-4 times a week. Will increase to 25 mg. Reviewed potential interactions with sertraline, both sertraline and amitriptyline currently at relatively low doses so unlikely to precipitate serotonin syndrome. They will call with any concerns or questions, otherwise recheck in 3-4 weeks. Assessment & Plan (06/01/2020 11:52 AM EST): Daily migrainous headaches not responding to supportive care and lifestyle changes. Discussed options for treatment, she is interested in a daily medication to help with headaches and sleep. Starting amitriptyline today. Recheck in 3 weeks. Sleep disturbance 11/04/2019 Overview (11/04/2019): 11/04/19-will stop melatoinin and trial low dose trazadone Assessment & Plan (10/05/2020 4:59 PM EDT): Continues to have poor sleep. It is worse now that before due to pain. She sleep better with benadryl at night Orthostatic hypotension 01/27/2018 Overview (06/03/2018): 01/18/18-followed by Dr Goldman, normal initial visit, event monitor, CBC/ferritin ordered. Florinef Rx 02/2018- 0.1 mg florinef without improvement therefore Dr Goldman increased to 0.2mg 03/2018- florinef showed minimal improvement, added NaCl or midodrine Disordered eating 12/27/2017 Dysmenorrhea 12/27/2017 Overview (12/27/2017): Nausea, shaking and sweating 3rd day into period. Trial of control. Self-mutilation 10/04/2015 Overview (12/27/2017): 10/17-history cutting x1 Anxiety 10/03/2015 Overview (2020): Worries a lot. Has a check list of questions that she asks mom nightly prior to bed ( will I wake up paralyzed, will I wake up deaf, will my heart stop beating). Does sleep well and through the night. see tel enc 08/26/15-referred to [facility], 11/01/1626-eueidhkm-gik therapist weekly, 04/08/18-seen at crisis due to increased depression, increased disordered eating and vague SI-referred to outpatient therapy 08/18/20-EKG normal (on amitriptyline and SSRI at same time) Assessment & Plan (06/01/2020 11:52 AM EST): Continues on sertraline with good effect, no significant side effects. Will continue at current dose. Hyperhidrosis 10/03/2015 Acne vulgaris 03/11/2015 Overview (06/14/2020): 06/14/20-followed by Carlos Mcmahon at [facility]. Tried retin A topically x 2mo then added 1 mo minocin 100mg BID with planned f/u, also Rxs BP wash Allergic rhinitis 03/01/2015 Resolved Problems Problem Noted Date Diagnosed Date Resolved Date Chronic daily headache 05/13/202006/01 Assessment & Plan (05/13/2020 6:22 PM EST): No red flags in history of exam. Likely combination of anxiety, poor sleep, inconsistent meal intake, screen time, and lack of physical activity. Advised to start having three meals and two snacks daily, 2L water, 10 minute walk in the morning for early sun exposure and exercise, and improving sleep hygiene. Advised to keep a journal of her headache symptoms, severity, and temporal pattern. Recheck in 2 weeks if not improving. Closed fracture of sesamoid bone of left foot 04/19/20 20 08/31/2020 Overview (04/19/2020): 04/2020-followed by Dr Varela [facility] Ortho-trying complete non-weight bearing before surgery Acute constipation 09/12/2018 0 Palpitations 08/05/2018 09/12/2018 Overview (08/05/2018): 08/04/18-seen at [facility] ED with normal EKG, labs. Discharged home. Saw Dr Goldman 03/21, dx with orthostatic symtoms and palpitations that were not fully captured on event monitor Tear of right earlobe 05/07/20182018 Overview (05/07/2018): Followed by Dr Munoz, will have corrective surgery Torn earlobe, right, initial encounter 05/06/2018 09/09/2018 Generalized abdominal pain 06/21/2017 0 09/12/2018 Overview (07/25/2017): On and off since 06/2016. Ultrasound 10/2016 normal except for mildly echogenic liver Xray 06/2017 showed particulate matter in distended stomach Upper GI showed ? Ulcer, mild GERD Prilosec trial 07/2017, stool sent for H pylori Assessment & Plan (06/22/2017 6:59 AM EST): Labs normal X-ray shows distended stomach and ? Debris Will refer to GI for further evaluation given abnormal x-ray Immunizations Immunization Administration Dates Next Due COVID-19 Pfizer, monovalent, 12+ years 1 DTaP 09/11/2006, 4,02/25/2003,12/24,2002 HPV, Quadrivalent 03/18/2014,12/09/2013,09/30/19 14 Hep A, ped/adol 08/31/2020,08/21/2019 Hep B, ped/adol 05/26/2003,2002,2002 Hib (PRP-T) 11/26/2003, 3,2002,10/30 IPV 09/11/2006, 4,2002,10/30 Influenza 02/10/2009, 8,05/04/2004,04/02 Influenza, injectable, MDCK, preservative free, quadrivalent 02/28/2019,04/04/2018 Influenza, injectable, quadr ivalent, preservative free 03/15/2020,04/05/2018,04/13/2017,03/07 Influenza, intranasal, quadrivalent 03/20/2015,1 ,03/07/2013 Influenza, intranasal, trivalent 05/23/2012,01/2011,03/29/2010 MMR 11/26/2003 MMRV 09/11/2006 Meningococcal Conj (Menactra) MCV4P 08/21/2019,0 09/29/2013 Pneumococcal Conjugate 08/11/2004,2002,2002,10/30 Tdap 09/29/2013 Varicella 08/27/2003 Family History Relation Name Status Comments Father Alive Maternal Grandmother Mat Gr- GMother: lung disease Mother Alive Mother: migrain e Other 1 hypertension Other 2 lung disease Other 3 Alive Other 4 Alive Other 5 Alive migraine Social History Tobacco Use Types Packs/Day Years [...] PM EDT Sexual Orientation Not on file Last Filed Vital Signs Vital Sign Reading Time Taken Comments Blood Pressure 115/78 11/22/2020 4:06 PM EDT Pulse 85 11/22/2020 4:06 PM EDT Temperature 36.8 C (98.2 F) 10/05/2020 4:22 PM EDT Respiratory Rate - - Oxygen Saturation 97% 08/06/2019 1:51 PM EST Inhaled Oxygen Concentration - - Weight 67.9 kg (149 lb 12.8 oz) 11/22/2020 4:06 PM EDT Height 168.9 cm (5' 6.5 ) 08/31/2020 10 :47 AM EDT Body Mass Index 23.82 08/31/2020 10:47 AM EDT Plan of Treatment Health Maintenance Due Date Last Done Comments Men B Vaccine (1 of 2 - Standard) 2018 DTaP,Tdap,and Td Vaccines (7 - Td or Tdap) 09/30/2023 09/29/2013, 09/11/2006, 02/15/2004, Additional history exists Influenza Vaccines (#1) 2025 02/22/20 23, 04/24/2022, 03/24/2021, Additional history exists COVID-19 Vaccine (2024-07 6 season) 2025 06/20/2021, 10/14/2020, 09/20/2020 HIB Vaccines Completed 11/26/2003, 02/03, 2002, Additional history exists Pneumococcal Vaccine Completed 08/11/2004, 02/25/2003, 2002, Additional history exists IPV Vaccines Completed 09/11/2006, 08/03, 2002, Additional history exists MMR Vaccines Completed 09/11/2006, 09/02, 11/26/2003 Varicella Vaccines Completed 09/11/2006, 0 09/11/2006, 08/27/2003 HPV Vaccines Completed 03/18/2014, 070 01/2014, 09/29/2013 Meningococcal Vaccine Completed 08/21/2019, 014 Hepatitis A Vaccines Completed 08/31/2020, 08/21/19 Hepatitis B Vaccines Completed 02/21/2023, 01/04/2023, 05/26/2003, Additional history exists Procedures * Due to [place] [employer] law, this organization might not be sharing sensitive test results. Procedure Name Priority Date/Time Associated Diagnosis Comments CHLAMYDIA AND GONORRHEA, AMPLIFIED Routine 08/31/2020 7:15 PM EDT Well adult exam from Last 3 Months or Most Recently Relevant to Health Maintenance Results * Due to [place] [employer] law, this organization might not be sharing sensitive test results. * Chlamydia and Gonorrhoea, Amplified (08/31/2020 7:15 PM EDT) Chlamydia trachomatis RNA, TMA Not Detected Not Detected 09/01/2020 11:46 AM EDT [facility] Neisseria gonorrhoeae, GISELE Not Detected Not Detected 09/01/2020 11:46 AM EDT [facility] Specimen Type URINE 09/01/2020 11:46 AM EDT [facility] Urine 08/31/2020 7:15 PM EDT 08/31/2020 7:16 PM EDT us Vidya Marin NP LAB MICROBIOLOGY - GENERAL ORD ERABLES Final Result [facility] from Last 3 Months or Most Recently Relevant to Health Maintenance
== END 2025-02-27 10:02 | disposition home or self-care (01) ==
LOC: HO.HSM 09:25
PROVIDERS: PCP Student in an Organized Health Care Education/Training Program; Visit Provider Registered Nurse
DX: G40.909 Epilepsy, unspecified, not intractable, without status epilepticus (principal); G43.009 Migraine without aura, not intractable, without status migrainosus
CPT/HCPCS: 99214